=== PATIENT | female | born 1960 | race Caucasian/White ===

== ENCOUNTER 2019-01-24 13:18 | Emergency (ER) | payer OTHER ==
[~2019-01-24] VITALS: Ht 149.9 cm; Wt 61.7 kg
[~2019-01-24 13:18] MED LIST: NO MEDS
[2019-01-24] MEDS ORDERED: ONDANSETRON HCL INJ 2MG/ML 2ML 2 MG/ML VIAL IV ONE (13:29)
[2019-01-24] MEDS ORDERED: SODIUM CHLORIDE 0.9% 1000ML 1,000 ML IV STA (13:29)
[2019-01-24] MEDS ORDERED: MORPHINE SULFATE INJ 4 MG/ML INJ 1ML IV ONE (13:29)
[2019-01-24] MEDS ORDERED: DIATRIZOATE MEGL/DIATRIZOA SOD 30 ML BTL PO ONE (13:41)
[2019-01-24 14:22] LABS: BASOPHILS % 0.3 % (0.0-1.0); EOSINOPHILS # (AUTO) 0.1 (0.0-0.4); EOSINOPHILS % 0.5 % (0.0-6.0); HEMATOCRIT 44.6 % (34.2-44.1); HEMOGLOBIN 14.7 g/dL (12.0-16.0); LYMPHOCYTES # (AUTO) 1.8 (1.0-3.2); LYMPHOCYTES % 14.8 % (18.0-39.1); MEAN CORPUSCULAR HEMOGLOBIN 28.4 pg (28-32); MEAN CORPUSCULAR VOLUME 86.1 fL (81-99); MONOCYTES # (AUTO) 0.8 (0.2-0.8); MONOCYTES % 7.1 % (4.4-11.3); NEUTROPHILS # (AUTO) 9.1 (2.1-6.9); NEUTROPHILS % 76.9 % (38.7-80.0); PLATELET COUNT 244 x10e3/uL (140-360); RED BLOOD COUNT 5.18 x10e6/uL (3.6-5.1); RED CELL DISTRIBUTION WIDTH 13.2 % (11.7-14.4)
[2019-01-24 14:36] LABS: BILIRUBIN,URINE NEGATIVE (NEGATIVE); CLARITY,URINE SL CLOUDY (CLEAR); COLOR,URINE YELLOW (YELLOW); KETONES,URINE 1+ (NEGATIVE); LEUKOCYTE ESTERASE ,URINE TRACE (NEGATIVE); NITRITE,URINE NEGATIVE (NEGATIVE); PROTEIN,URINE DIPSTICK TRACE (NEGATIVE); URINE UROBILINOGEN 0.2 mg/dL (0.2 - 1)
[2019-01-24 14:42] LABS: ALANINE AMINOTRANSFERASE 49 IU/L (0-55); ALBUMIN 4.3 g/dL (3.5-5.0); ALBUMIN/GLOBULIN RATIO 1.1 (0.8-2.0); ALKALINE PHOSPHATASE 98 IU/L (40-150); ANION GAP 17.3 mmol/L (8-16); BLOOD UREA NITROGEN 20 mg/dL (7-26); BUN/CREATININE RATIO 26 (6-25); CALCIUM 9.8 mg/dL (8.4-10.2); CARBON DIOXIDE 22 mmol/L (22-29); CHLORIDE 102 mmol/L (98-107); CREATININE, SERUM 0.78 mg/dL (0.57-1.11); EST GLOMERULAR FILTRATION RATE > 60 ML/MIN (60-); GLUCOSE 147 mg/dL (74-118); MAGNESIUM 2.7 MG/DL (1.3-2.1); POTASSIUM 4.3 mmol/L (3.5-5.1); SODIUM 137 mmol/L (136-145)
[2019-01-24 14:52] LABS: BACTERIA,URINE FEW /HPF; EPITHELIAL CELLS,URINE FEW /LPF; RBC,URINE 0-5 /HPF (0-5); WBC,URINE (MAN) 0-5 /HPF (0-5)
[2019-01-24 14:53] LABS: AMORPHOUS SEDIMENT,URINE FEW (FEW); MUCUS,URINE FEW (RARE)
--- NOTE | 2019-01-24 15:44 | Diagnostic Imaging Report ---
CT of the abdomen and pelvis, with contrast, 01/24/2019. History: Left lower quadrant abdominal pain. Comparison: None available. Technique: Multidetector CT scanning of the abdomen and pelvis was performed from the level of the lung bases to the inferior pubic rami after intravenous and oral administration of contrast. Coronal and sagittal multiplanar reformations were obtained. RADIATION DOSE: Total DLP: 334 mGy*cm Dose modulation, iterative reconstruction, and/or weight based adjustment of the mA/kV was utilized to reduce the radiation dose to as low as reasonably achievable. Discussion: LUNG BASES: No visualized abnormalities. ABDOMEN: A 2.1 x 1.4 cm oval hypodense structure is present in the pancreatic tail measuring 9 Hounsfield units in density. There is no adjacent inflammation. Pancreas is otherwise unremarkable. The liver, gallbladder, biliary tree, spleen, adrenal glands, and kidneys are normal. The hepatic vein, portal vein, and splenic vein are patent. The abdominal aorta is within normal limits for size. A small hiatal hernia is present. The small bowel is unremarkable. The appendix is visualized and is normal. Multiple diverticuli are present throughout the colon, especially in the sigmoid. There is sigmoid wall thickening with adjacent mesenteric fat stranding. There is no focal fluid collection or evidence of free air. There is no evidence of adenopathy or free fluid. A small fat-containing umbilical hernia is present. PELVIS: The bladder, uterus, adnexa are unremarkable. There is no evidence of free fluid or adenopathy. 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 No other significant findings. IMPRESSION: 1. Sigmoid diverticulitis without evidence of perforation or abscess. 2. Pancreatic tail cystic lesion may represent simple cyst or IPMN. Recommend six-month follow-up. Signed by: Quinton Burger on 01/24/2019 3:40 PM
[2019-01-24] MEDS ORDERED: CIPRO500 MG PO (16:27)
[2019-01-24] MEDS ORDERED: ULTRAM50 MG PO (16:27)
[2019-01-24] MEDS ORDERED: FLAGYL500 MG PO (16:27)
[2019-01-24 16:56] VITALS: BP 113/69
[2019-01-24] MEDS ORDERED: IOPAMIDOL 370 MG/ML 200 ML INFUS..BTL INJ ONE (18:23)
[2019-01-24] MEDS ORDERED: SODIUM CHLORIDE 0.9% 50ML 50 ML ONE (18:23)
== END 2019-01-24 16:48 | disposition home or self-care (01) ==
LOC: ER 13:18
DX: R10.32 Left lower quadrant pain (principal); K57.32 Diverticulitis of large intestine without perforation or abscess without bleeding
CPT/HCPCS: 36415; 74177; 80053; 81001; 83605; 83735; 85025; 87086; 99284; J2270; J2405; J7030; Q9967

== ENCOUNTER 2019-09-25 16:13 | Emergency (ER) | payer OTHER ==
[~2019-09-25] VITALS: Ht 149.9 cm; Wt 61.7 kg
[~2019-09-25 16:13] MED LIST changes: +CIPRO500 MG PO; +FLAGYL500 MG PO; +ULTRAM50 MG PO
--- OUTSIDE RECORDS SUMMARY | 2019-09-25 16:16 | XMS REPORT ---
Author Author [facility] Address Unknown Phone Unavailable Care Team Providers Care Embedded Linux Developer Name Role Phone HEAVENLY Cardoza, Hardy REYNA PP Anabell MCLEAN Unavailable Unavailable Payers Payer Name Policy Type Policy Number Effective Date Expiration Date [facility] [id number] 2016 00:00:00 Problems Condition Name Condition Details Condition Category Status Onset Date Resolution Date Last Treatment Date Treating Clinician Comments Chest pain Chest pain Problem Active Allergies, Adverse Reactions, Alerts Allergy Name Allergy Type Status Severity Reaction(s) Onset Date Inactive Date Treating Clinician Comments No Known Allergies DA Active U 2014-09-27 00:00:00 Medications Ordered Medication Name Filled Medication Name Start Date Stop Date Current Medication? Ordering Clinician Indication Dosage Frequency Signature (SIG) Comments Components Ciprofloxacin Hcl (Cipro) 500 Mg Tablet Ciprofloxacin Hcl (Cipro) 500 Mg Tablet 2019-01-24 00:00:00 Yes Diego L Rico [employer] Super[employer] 500 Twice A Day Metronidazole (Flagyl) 500 Mg Tablet Metronidazole (Flagyl) 500 Mg Tablet 2019-01-24 00:00:00 Yes Diego L Rico [employer] Super[employer] 500 Twice A Day Tramadol Hcl (Ultram) 50 Mg Tablet Tramadol Hcl (Ultram) 50 Mg Tablet 2019-01-24 00:00:00 Yes Diego Rico [employer] Supervisor 50 Every 6 Hours as needed for Mild Pain (1-3) Or Fever>100.8 Procedures and Interventions Procedure Date / Time Performed Performing Clinician Computed tomography of abdomen and pelvis with contrast 2019-01-24 00:00:00 DIEGO RICO Encounters Start Date/Time End Date/Time Encounter Type Admission Type Attending [facility] Care Department Encounter ID 2019-01-24 13:18:00 2019-01-24 16:48:00 Departed Emergency Room 1 DAYRON MCLEAN [facility] [id number] Results Test Description Test Time Test Comments Text Results Atomic Results Result Comments BREAST,BIOPSY 2019-04-04 15:30:00 RUN DATE: 04/04/19 [employer] PAGE 1 RUN TIME: 1530 Specimen Inquiry RUN USER: INTERFACE PATIENT: BINTA RICH LOC: JAQUELIN #: [id number] AGE/SX: 58/F ROOM: RE04/02/19REG DR: Brock Kaur Jr, MD : 60 BED: DIS: STATUS: PRE REF TLOC: SPEC #: [id number] RECD: 04/03/19 STATUS: VALDEMAR ZEE #: [id number] ISAIAH: 04/02/19 DR: Brock Kaur Jr, MD ENTERED: 04/03/19 SP TYPE: BX BREAST OTHR DR: Geni Haddad MD ORDERED: GROSS COPIES TO: Brock Kaur Jr, MD [address] , [address] [place] [id number] Geni Haddad MD [address] , [address] [place] [address] PROCEDURES: GROSS (04/04/19) TISSUES: 1. BREAST CORE BIOPSY - WITHOUT CALCIFICATIONS LEFT 2. BREAST CORE BIOPSY - LEFT WITH CALCIFICATIONS CLINICAL HISTORY COLLECTION DATE: 04/02/19 LEFT BREAST CALCIFICATIONS FINAL DIAGNOSIS Left breast without calcifications, site not otherwise specified, stereotactic core biopsy: FATTY REPLACED BREAST TISSUE NO CALCIFICATIONS PRESENT NEGATIVE FOR MALIGNANCY Left breast with calcifications, site not otherwise specified, stereotactic core biopsy: CALCIFICATION IN AREA OF HYALINIZED FIBROADENOMA AREA OF HYALINIZED FIBROADENOMA WITHOUT CALCIFICATION FATTY BREAST PARENCHYMA WITH NO PATHOLOGIC ALTERATION NEGATIVE FOR MALIGNANCY RRB/roro D [id number] CONTINUED ON NEXT PAGE RUN DATE: 04/04/19 [place] [facility] PAGE 2 RUN TIME: 1530 Specimen Inquiry RUN USER: INTERFACE SPEC #: [id number] PATIENT: BINTA RICH #[id number] (Continued)--- MACROSCOPIC Specimen (1) is received in formalin, labeled "left breast without calcifications" and consists of fragments of yellow fatty tissue and a small amount of renee fibrous tissue. The specimen measures 2.5 x 2.5 x 0.25 cm in aggregate. The tissue is entirely submitted as (1). S pecimen (2) is received in formalin, labeled with the patient's name, "left breast with calcification +" and consists of multiple fragments of yellow fatty tissue with a small amount of renee fibrous tissue. The specimen measures 2.5 x 2.0 x 0.3 cm in aggregate. The tissue is submitted as (2). GROSS PERFORMED AT [facility] [address] [place] [address] (p)[phone] MICROSCOPIC All of the stains, including any controls performed, stain appropriately. MICROSCOPIC PERFORMED AT [facility] [address] [place] [address] (p)[phone] PERFORMING SITE Diagnosis performed at: [facility], SIRI [address] [place] [address] [phone] Signed SIGNATURE ON FILE Bishnu Schafer MD 04/04/[address] ABDOMEN/PELVIS W 2019-01-24 15:35:00 [place] [address] Patient Name: BINTA RICH MR #: [id number] : 1960 Age/Sex: 58/F Req #: [id number] Adm Physician: Ordered by: DIEGO RICO NP Report #: [id number] Location: ER Room/Bed: Procedure: [id number] CT/CT ABDOMEN/PELVIS W Exam Date: 01/24/19 Exam Time: 1509 REPORT STATUS: Signed CT of the abdomen and pelvis, with contrast, 01/24/2019. History: Left lower quadrant abdominal pain. Comparison: None available. Technique: Multidetector CT scanning of the abdomen and pelvis was performed from the level of the lung bases to the inferior pubic rami after intravenous and oral administration of contrast. Coronal and sagittal multiplanar reformations were obtained. RADIATION DOSE: Total DLP: 334 mGy*cm Dose modulation, iterative reconstruction, and/or weight based adjustment of the mA/kV was utilized to reduce the radiation dose to as low as reasonably achievable. Discu ssion: LUNG BASES: No visualized abnormalities. ABDOMEN: A 2.1 x 1.4 cm oval hypodense structure is present in the pancreatic tail measuring 9 Hounsfield units in density. There is no adjacent inflammation. Pancreas is otherwise unremarkable. The liver, gallbladder, biliary tree, spleen, adrenal glands, and kidneys are normal. The hepatic vein, portal vein, and splenic vein are patent. The abdominal aorta is within normal limits for size. A small hiatal hernia is present. The small bowel is unremarkable. The appendix is visualized and is normal. Multiple diverticuli are present throughout the colon, especially in the sigmoid. There is sigmoid wall thickening with adjacent mesenteric fat stranding. There is no focal fluid collection or evidence of free air. There is no evidence of adenopathy or free fluid. A small fat-containing umbilical hernia is present. PELVIS: The bladder, uterus, adnexa are unremarkable. There is no evidence of free fluid or adenopathy. 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 No other significant findings. IMPRESSION: 1. Sigmoid diverticulitis without evidence of perforation or abscess. 2. Pancreatic tail cystic lesion may represent simple cyst or IPMN. Recommend six-month follow-up. Signed by: Quinton Burger on 01/24/2019 3:40 PM Dictated By: QUINTON BURGER MD 154 Transcribed By: LASHAWN on 01/24/19 1540 COPY TO: DIEGO RICO NP Sodium Level 2019-01-24 14:54:00 Sodium Level (test xplh=1646-0) 137 136-145 Potassium Ooygb5969-90-73 14:54:00* Test Item Value Reference Range Comments Potassium Level (test hbnu=8402-1) 4.3 3.5-5.1 Chloride Ueuxz7401-69-65 14:54:00* Test Item Value Reference Range Comments Chloride Level (test ykda=8516-0) 102 98-107 Carbon Dioxide Issjy0144-59-49 14:54:00* Test Item Value Reference Range Comments Carbon Dioxide Level (test nqdp=1615-2) 22 22-29 Anion Ecd1216-47-86 14:54:00* Test Item Value Reference Range Comments Anion Gap (test fhvp=05079-9) 17.3 8-16 Blood Urea Zqoyswfj1976-21-30 14:54:00* Test Item Value Reference Range Comments Blood Urea Nitrogen (test sqfn=2560-7) 20 7-26 Uvnsrdvija1890-62-90 14:54:00* Test Item Value Reference Range Comments Creatinine (test jmwq=9059-3) 0.78 0.57-1.11 BUN/Creatinine Avbae2854-06-63 14:54:00* Test Item Value Reference Range Comments BUN/Creatinine Ratio (test jhsm=4446-3) 26 6-25 Estimat Glomerular Filtration Oteu2178-60-22 14:54:00* Test Item Value Reference Range Comments Estimat Glomerular Filtration Rate (test amkp=108232772) > 60 >60 Ranges were taken from the National Kidney Disease Education Program and the [employer] Kid[employer] Foundation literature.Reference ranges:60 or greater: Uydkwc43-91 ( for 3 consecutive months): Chronic kidney disease 15 or less: Kidney failure Glucose Gbweh4391-79-10 14:54:00* Test Item Value Reference Range Comments Glucose Level (test cgya=MWW0900) 147 74-118 Calcium Jggpa5588-02-92 14:54:00* Test Item Value Reference Range Comments Calcium Level (test qobs=37286-4) 9.8 8.4-10.2 Magnesium Ypmud6217-14-31 14:54:00* Test Item Value Reference Range Comments Magnesium Level (test rpoo=72746-4) 2.7 1.3-2.1 Total Pwiwdsccw2414-22-74 14:54:00* Test Item Value Reference Range Comments Total Bilirubin (test rbgr=0604-3) 0.9 0.2-1.2 Aspartate Amino Transf (AST/SGOT)2019-01-24 14:54:00* Test Item Value Reference Range Comments Aspartate Amino Transf (AST/SGOT) (test code=Aspartate Amino Transf (AST/SGOT)) 37 5-34 Alanine Aminotransferase (ALT/SGPT)2019-01-24 14:54:00* Test Item Value Reference Range Comments Alanine Aminotransferase (ALT/SGPT) (test burw=6211-2) 49 0-55 Total Hsimzcy3027-87-94 14:54:00* Test Item Value Reference Range Comments Total Protein (test otyk=2403-0) 8.2 6.5-8.1 Ehddvnm0531-31-55 14:54:00* Test Item Value Reference Range Comments Albumin (test ttoz=9948-6) 4.3 3.5-5.0 Ysdaopcu0705-54-28 14:54:00* Test Item Value Reference Range Comments Globulin (test xbpg=91129-8) 3.9 2.3-3.5 Albumin/Globulin Oluqf1555-78-11 14:54:00* Test Item Value Reference Range Comments Albumin/Globulin Ratio (test agjf=1556-5) 1.1 0.8-2.0 Alkaline Qddjharadmj6795-43-55 14:54:00* Test Item Value Reference Range Comments Alkaline Phosphatase (test txyw=3070-5) 98 40-150 Urine JOI0745-14-30 14:53:00* Test Item Value Reference Range Comments Urine WBC (test kqzw=3433-5) 0-5 0-5 Urine DRU0926-86-22 14:53:00* Test Item Value Reference Range Comments Urine RBC (test nxrj=60330-7) 0-5 0-5 Urine Haengtjt1714-15-04 14:53:00* Test Item Value Reference Range Comments Urine Bacteria (test dmch=33015-4) FEW NONE Urine Epithelial Qzyrr6612-48-77 14:53:00* Test Item Value Reference Range Comments Urine Epithelial Cells (test xnhu=89998-7) FEW NONE Urine Amorphous Xjvcrape7904-50-89 14:53:00* Test Item Value Reference Range Comments Urine Amorphous Sediment (test btls=3534-2) FEW FEW Urine Peqjg7353-96-05 14:53:00* Test Item Value Reference Range Comments Urine Mucus (test imrq=6300-0) FEW RARE Lactic Acid Evwws6328-82-85 14:40:00* Test Item Value Reference Range Comments Lactic Acid Level (test code=Lactic Acid Level) 16.3 4.5-19.8 Urine Abnlx9191-72-29 14:37:00* Test Item Value Reference Range Comments Urine Color (test kfjm=5621-9) YELLOW YELLOW Urine Nhiknyo8356-86-11 14:37:00* Test Item Value Reference Range Comments Urine Clarity (test wlrf=14491-7) SL CLOUDY CLEAR Urine Specific Amkelsj1671-54-94 14:37:00* Test Item Value Reference Range Comments Urine Specific Grassflat (test yowz=3586-5) >=1.030 1.010-1.025 Urine tM6251-31-47 14:37:00* Test Item Value Reference Range Comments Urine pH (test bpla=41465-1) 5.5 5-7 Urine Leukocyte Jpdzbksx5461-30-65 14:37:00* Test Item Value Reference Range Comments Urine Leukocyte Esterase (test dame=49913-1) TRACE NEGATIVE Urine Btiprlh1719-91-99 14:37:00* Test Item Value Reference Range Comments Urine Nitrite (test nuiq=31133-3) NEGATIVE NEGATIVE Urine Widyuzv9457-61-11 14:37:00* Test Item Value Reference Range Comments Urine Protein (test qokk=53057-1) TRACE NEGATIVE Urine Glucose (UA)2019-01-24 14:37:00* Test Item Value Reference Range Comments Urine Glucose (UA) (test fscn=05861-3) NEGATIVE NEGATIVE Urine Vfgrlpg4409-40-09 14:37:00* Test Item Value Reference Range Comments Urine Ketones (test iadp=60583-0) 1+ NEGATIVE Urine Jylvrwkflato2296-18-00 14:37:00* Test Item Value Reference Range Comments Urine Urobilinogen (test csuh=22817-5) 0.2 0.2-1 Urine Dvquvguyk5715-28-18 14:37:00* Test Item Value Reference Range Comments Urine Bilirubin (test juwi=8928-1) NEGATIVE NEGATIVE Urine Euirv3059-71-62 14:37:00* Test Item Value Reference Range Comments Urine Blood (test qsnr=09281-2) NEGATIVE NEGATIVE White Blood Fbgzp3450-65-70 14:24:00* Test Item Value Reference Range Comments White Blood Count (test mnsh=2431-8) 11.81 4.8-10.8 Red Blood Znpke0507-61-52 14:24:00* Test Item Value Reference Range Comments Red Blood Count (test hglw=490-8) 5.18 3.6-5.1 Qsxccdogcu0034-01-54 14:24:00* Test Item Value Reference Range Comments Hemoglobin (test kjzb=26198-5) 14.7 12.0-16.0 Fjbdkebovp2725-47-16 14:24:00* Test Item Value Reference Range Comments Hematocrit (test ctdz=4693-3) 44.6 34.2-44.1 Mean Corpuscular Xqtlmq4355-89-95 14:24:00* Test Item Value Reference Range Comments Mean Corpuscular Volume (test cood=139-3) 86.1 81-99 Mean Corpuscular Dlluiqwzlm5891-89-13 14:24:00* Test Item Value Reference Range Comments Mean Corpuscular Hemoglobin (test mlgl=240-1) 28.4 28-32 Mean Corpuscular Hemoglobin Rrkoytk1475-72-47 14:24:00* Test Item Value Reference Range Comments Mean Corpuscular Hemoglobin Concent (test qrur=646-2) 33.0 31-35 Red Cell Distribution Ibqwv4365-76-72 14:24:00* Test Item Value Reference Range Comments Red Cell Distribution Width (test hhco=66497-5) 13.2 11.7-14.4 Platelet Joasx8253-98-79 14:24:00* Test Item Value Reference Range Comments Platelet Count (test yxbb=281-3) 244 140-360 Neutrophils (%) (Auto)2019-01-24 14:24:00* Test Item Value Reference Range Comments Neutrophils (%) (Auto) (test nebf=27062-0) 76.9 38.7-80.0 Lymphocytes (%) (Auto)2019-01-24 14:24:00* Test Item Value Reference Range Comments Lymphocytes (%) (Auto) (test cdtg=248-8) 14.8 18.0-39.1 Monocytes (%) (Auto)2019-01-24 14:24:00* Test Item Value Reference Range Comments Monocytes (%) (Auto) (test ekti=1757-8) 7.1 4.4-11.3 Eosinophils (%) (Auto)2019-01-24 14:24:00* Test Item Value Reference Range Comments Eosinophils (%) (Auto) (test nlfi=543-3) 0.5 0.0-6.0 Basophils (%) (Auto)2019-01-24 14:24:00* Test Item Value Reference Range Comments Basophils (%) (Auto) (test uagq=754-4) 0.3 0.0-1.0 IM GRANULOCYTES %2019-01-24 14:24:00* Test Item Value Reference Range Comments IM GRANULOCYTES % (test code=IM GRANULOCYTES %) 0.4 0.0-1.0 Neutrophils # (Auto)2019-01-24 14:24:00* Test Item Value Reference Range Comments Neutrophils # (Auto) (test lwdz=216-7) 9.1 2.1-6.9 Lymphocytes # (Auto)2019-01-24 14:24:00* Test Item Value Reference Range Comments Lymphocytes # (Auto) (test bhkc=50362-0) 1.8 1.0-3.2 Monocytes # (Auto)2019-01-24 14:24:00* Test Item Value Reference Range Comments Monocytes # (Auto) (test wyna=869-4) 0.8 0.2-0.8 Eosinophils # (Auto)2019-01-24 14:24:00* Test Item Value Reference Range Comments Eosinophils # (Auto) (test mkzf=284-8) 0.1 0.0-0.4 Basophils # (Auto)2019-01-24 14:24:00* Test Item Value Reference Range Comments Basophils # (Auto) (test svto=338-0) 0.0 0.0-0.1 Absolute Immature Granulocyte (womg9543-86-89 14:24:00* Test Item Value Reference Range Comments Absolute Immature Granulocyte (auto (test code=Absolute Immature Granulocyte (auto) 0.05 0-0.1 - CT ABD PELVIS W/WKLZ5421-02-18 11:19:00 Name: BINTA RICH [facility] : 1960 Age/S: 58 / F [address] Unit #: [id number] Loc: [place] [address] Phys: Shahzad Fulton MD Acct: [id number] Dis Date: Status: REG ER PHONE #: [phone] Exam Date: 12/21/2018 1036 FAX #: [phone] Reason: R sided abd pain eval for appy EXAMS: CPT CODE: [id number] CT ABD PELVIS W/CONT 19766 REASON FOR EXAM: R sided abd pain eval for appy EXAM ORDER DATE: 12/21/2018 10:19 AM Ordering MBritt: Shahzad Fulton MD PROCEDURE: - CT ABD PELVIS W/CONT contrast-enhanced axial CT images were acquired through the abdomen/pelvis at 5 mm intervals. Sagittal and coronal reformatted images were generated. Automated exposure control was utilized for this reduction. Phases of contrast: venous and delayed COMPARISON: Abdominal ultrasound 1 hour earlier FINDINGS: Visualized thorax: Normal Hepatobiliary system: Decreased attenuation of the liver compatible with hepatic steatosis. No hepatic masses are seen. No intra or extra hepatic biliary ductal dilatation. Gallbladder is within normal limits. Pancreas: 2.2 x 1.6 cm cystic lesion in the tail of the pancreas. No definite internal septations are seen. Spleen: Normal Adrenal glands: Normal Genitourinary system: Calcifications within the uterus may represent fibroids. Otherwise normal. Gastrointestinal tract and appendix: There is diverticular disease seen throughout the colon that is most pronounced in the sigmoid colon. There is mural thickening and adjacent fat stranding involving a 7 cm segment of the proximal ascending colon. Appendix is within normal limits. Cecum was within normal limits. The small bowel is grossly unremarkable. Abdominal vascular structures: Atherosclerotic disease is scattered throughout the abdominal aorta and iliac arteries. Peritoneum and retroperitoneum: No free air. As mentioned earlier PAGE 1 Signed Report (CONTINUED) Name: BINTA RICH [facility] : 1960 Age/S: 58 / F [address] Unit #: [id number] Loc: [facility] [place] [address] Phys: Shahzad Fulton MD Acct: [id number] Dis Date: Status: REG ER PHONE #: [phone] Exam Date: 12/21/2018 1036 FAX #: [phone] Reason: R sided abd pain eval for appy EXAMS: CPT CODE: [id number] CT ABD PELVIS W/CONT 46791 <Continued> there is stranding of the fat adjacent to the proximal ascending colon. No discrete fluid collection is seen however. There are a few subcentimeter pericolonic lymph nodes in the right hemiabdomen which are nonspecific and may be reactive. Musculoskeletal structures and abdominal wall: Mild degenerative changes are present in the lumbar spine. Small fat-containing umbilical hernia is present. IMPRESSION: Inflammatory changes involving a 7 cm segment of the ascending colon. Given the presence of diffuse diverticular disease throughout the colon, this finding likely represents diverticulitis. No free air or rim-enhancing fluid collection is seen. Cystic lesion in the tail of the pancreas may represent a mucinous cystadenoma of the pancreas versus a side branch intraductal papillary mucinous neoplasm. This can be further evaluated with a nonemergent MRCP to assess the relationship of this lesion to the pancreatic duct. Hepatic steatosis. at 1119 Reported and signed by: Trey Frankel MD CC: Brock Kaur M.D.; Vipul Fulton MD Technologist:DORA CULLEN, RT(R),CT CTDI: DLP: Trnscb Date/Time: 12/21/2018 (1119) t.SDR.RR31 Orig Print D/T: S: 12/21/2018 (1122) PAGE 2 Signed Report - US ABDOMEN STP6903-87-60 10:10:00 Name: IBNTA RICH [facility] : 1960 Age/S: 58 / F [address] Unit #: [id number] Loc: [place] [address] Phys: Bridget Fulton MD Acct: [id number] Di s Date: Status: REG ER PHONE #: Exam Date: 12/21/2018 0943 FAX #: [phone] Reason: RUQ pain EXAMS: CPT CODE: [id number] US ABDOMEN LTD 84032 REASON FOR EXAM: RUQ pain EXAM ORDER DATE: 12/21/2018 8:29 AM Ladonna jimenez M.D.: Shahzad Fulton MD PROCEDURE: - US ABDOMEN LTD Technique: Grayscale images of the Pancreas, liver, right kidney, common bile duct, and gallbladder. Grayscale and color Doppler images of the aorta, IVC, and portal vein. Comparison: None FI NDINGS: Aorta and IVC:Patent and grossly normal in caliber. Liver: Size: 14.6 cm craiocaudally Parenchyma and contour: Smooth contour. Diffusely increased echogenicity. Cysts and/or mass es: None. Intrahepatic bile ducts: No intrahepatic biliary ductal dilation Common bile duct: 0.3 cm in diameter. No echogenic filli ng defects in visualized duct. Gallbladder: Stones/sl udge: No intraluminal stones or sludge. Wall: 2 mm in thickness. No disco ntinuity. No polyps. No pericholecystic fluid. No hyperemia. Sono graphic Pino's sign: Negative Portal vein: Portal vein caliber i s within normal limits. Portal vein is patent with hepatopetal flow. Pancreas: Incompletely visualized. However the visualized portions are grossly within normal limits. Right kidney: size: 9.4 x 4.5 x 3.7 cm. stones: none PAGE 1 Signed Re port (CONTINUED) Name: LAYLABINTA HAMILTON [facility] : 1960 Age/S: 58 / F [address] [facility] Unit #: [id number] Loc: [place] [address] Phys: Shahzad Fulton MD Acct: [id number] Dis Date: Status: REG ER PHONE #: [phone] Exam Date: 12/21/2018 0943 FAX #: [phone] Reason: RUQ pain EXAMS: CPT CODE: [id number] ABDOMEN LTD 92415 <Continued> cysts/masses: none hydronephrosis: none There is no evidence of ascites. IMPRESSION: Hepatic steatosis. at 1010 Reported and signed by: Trey Frankel MD CC: Brock Kaur M.D.; Shahzad Fulton MD Technologist: Nilam Vega Trncob Date/Time: 12/21/2018 (1010) t.SDR.RR31 Orig Print D/T: S: 12/21/2018 (1013) Probe: PAGE 2 Signed Report - XR CHEST 1 W2983-68-72 09:10:00 Name: BINTA RICH [facility] : 1960 Age/S:58 /F [address] Unit#:[id number] Loc: [place], [place] [address] Phys: Shahzad Fulton MD Dis Date: PHONE #: [phone] Status: REG ER FAX #: [phone] Exam Date: 12/21/2018 Reason: n/v EXAMS: CPT CODE: [id number] XR CHEST 1 V 08500 REASON FOR EXAM: n/v Exam Order Date: 12/21/2018 8:02 AM Ordering Nani: Shahzad Fulton MD PROCEDURE: - XR CHEST 1 V COMPARISON: 2 view chest x-ray October 10, 2013. FINDINGS: The lungs are clear. There is no pleural effusion or pneumothorax. Pulmonary vascularity is within normal limits. Cardiomediastinal silhouette is normal in size for technique. The mediastinal contours are within normal limits. Musculoskeletal structures are within normal limits. The visualized upper abdomen is within normal limits. IMPRESSION: No acute cardiopulmonary process. at 0910 Reported and signed by: Trey Frankel MD CC: Brock Kaur M.D.; Shahzad Fulton MD Technologist: DORA CULLEN, RT(R),CT Trnscrpt Data: 12/21/2018 (0910) t.SDR.RR31 Orig Print D/T: S: 12/21/2018 (0913) PAGE 1 Signed Report COMPREHENSIVE METABOLIC FHIQD4404-57-76 08:55:00* Test Item Value Reference Range Comments SODIUM (test code=NA) 138 mmol/L 135-148 POTASSIUM (test code=K) 3.6 mmol/L 3.5-5.1 CHLORIDE (test code=CL) 102 mmol/L 101-109 CARBON DIOXIDE (test code=CO2) 27.1 mmol/L 21-32 ANION GAP (test code=GAP) 13 mmol/L 10-20 GLUCOSE (test code=GLU) 130 mg/dL 74-106 BLOOD UREA NITROGEN (test code=BUN) 18 mg/dL 3-21 CREATININE (test code=CREAT) 0.83 mg/dL 0.55-1.3 BUN/CREATININE RATIO (test code=BUN/CREA) 21.7 10-20 TOTAL PROTEIN (test code=PROT) 7.5 g/dL 6.5-8.4 ALBUMIN (test code=ALB) 3.3 g/dL 3.4-4.8 GLOBULIN (test code=GLOB) 4.2 G/DL 1-10 ALBUMIN/GLOBULIN RATIO (test code=A/G) 0.8 RATIO 0.75-1.50 CALCIUM (test code=CA) 9.1 mg/dL 8.4-10.2 BILIRUBIN TOTAL (test code=BILT) 0.70 mg/dL 0.0-1.0 SGOT/AST (test code=AST) 18 U/L 6-32 SGPT/ALT (test code=ALT) 41 U/L 12-78 Note: Change in REFERENCE RANGE due to new reagent method. ALKALINE PHOSPHATASE TOTAL (test code=ALKP) 106 U/L 38-126 AWRAMD0016-75-11 08:55:00* Test Item Value Reference Range Comments LIPASE (test code=LIP) 81 U/L 128-270 RKBEGEMNN9209-58-56 08:55:00* Test Item Value Reference Range Comments MAGNESIUM (test code=MAG) 1.9 mg/dL 1.6-2.3 NGUJOTBV-X3622-03-13 08:55:00* Test Item Value Reference Range Comments TROPONIN-I (test code=TROPI) <0.015 ng/mL 0.00-0.056 COMPREHENSIVE METABOLIC GVZZK6795-26-77 08:53:00* Test Item Value Reference Range Comments SODIUM (test code=NA) 138 mmol/L 135-148 POTASSIUM (test code=K) 3.6 mmol/L 3.5-5.1 CHLORIDE (test code=CL) 102 mmol/L 101-109 CARBON DIOXIDE (test code=CO2) 27.1 mmol/L 21-32 ANION GAP (test code=GAP) 13 mmol/L 10-20 GLUCOSE (test code=GLU) 130 mg/dL 74-106 BLOOD UREA NITROGEN (test code=BUN) 18 mg/dL 3-21 CREATININE (test code=CREAT) 0.83 mg/dL 0.55-1.3 BUN/CREATININE RATIO (test code=BUN/CREA) 21.7 10-20 TOTAL PROTEIN (test code=PROT) gram/dL 6.4-8.2 ALBUMIN (test code=ALB) g/dL 3.4-5.0 GLOBULIN (test code=GLOB) g/dL 2.7-4.2 ALBUMIN/GLOBULIN RATIO (test code=A/G) 0.75-1.50 CALCIUM (test code=CA) 9.1 mg/dL 8.4-10.2 BILIRUBIN TOTAL (test code=BILT) mg/dL 0.2-1.2 SGOT/AST (test code=AST) IUnit/L 15-37 SGPT/ALT (test code=ALT) U/L 10-69 ALKALINE PHOSPHATASE TOTAL (test code=ALKP) IUnit/L 45-117 [id number] 08:53:00* Test Item Value Reference Range Comments LIPASE (test code=LIP) Unit/L 144-286 [id number] 08:53:00* Test Item Value Reference Range Comments MAGNESIUM (test code=MAG) mg/dL 1.8-2.4 [id number] 08:53:00* Test Item Value Reference Range Comments TROPONIN-I (test code=TROPI) ng/mL 0-0.045 URINALYSIS [id number] 08:44:00* Test Item Value Reference Range Comments UA COLOR (test code=COLU) YELLOW YELLOW UA APPEARANCE (test code=APPU) CLEAR CLEAR UA GLUCOSE DIPSTICK (test code=DGLUU) norm mg/dL NEGATIVE UA BILIRUBIN DIPSTICK (test code=BILU) NEGATIVE mg/dL NEGATIVE UA KETONE DIPSTICK (test code=KETU) neg mg/dL NEGATIVE UA SPECIFIC GRAVITY (test code=SGU) 1.010 1.001-1.035 UA BLOOD DIPSTICK (test code=PHI) 10 (Trace) Shamir/uL NEGATIVE UA PH DIPSTICK (test code=DAE) 7.0 5.0-8.0 UA PROTEIN DIPSTICK (test code=PROU) 15 (TRACE) mg/dL Neg-15 UA UROBILINIOGEN DIPSTICK (test code=URO) 1 mg/dL 0.0-0.2 UA NITRITE DIPSTICK (test code=CHRIS) NEGATIVE NEGATIVE UA LEUKOCYTE ESTERASE DIPSTICK (test code=LEUU) 25 María Elena/uL (Trace) uL NEGATIVE UA WBC (test code=WBCU) 6-10 per HPF 0-5 UA RBC (test code=RBCU) 5-10 per HPF 0-5 UA EPITHELIAL CELLS (test code=EPIU) Few (2-5/hpf) per HPF Few UA BACTERIA (test code=BACU) FEW per HPF NONE Urine Source? Clean CatchURINALYSIS [id number] 08:43:00* Test Item Value Reference Range Comments UA COLOR (test code=COLU) YELLOW YELLOW UA APPEARANCE (test code=APPU) CLEAR CLEAR UA GLUCOSE DIPSTICK (test code=DGLUU) norm mg/dL NEGATIVE UA BILIRUBIN DIPSTICK (test code=BILU) NEGATIVE mg/dL NEGATIVE UA KETONE DIPSTICK (test code=KETU) neg mg/dL NEGATIVE UA SPECIFIC GRAVITY (test code=SGU) 1.010 1.001-1.035 UA BLOOD DIPSTICK (test code=PHI) 10 (Trace) Shamir/uL NEGATIVE UA PH DIPSTICK (test code=DAE) 7.0 5.0-8.0 UA PROTEIN DIPSTICK (test code=PROU) 15 (TRACE) mg/dL Neg-15 UA UROBILINIOGEN DIPSTICK (test code=URO) 1 mg/dL 0.0-0.2 UA NITRITE DIPSTICK (test code=CHRIS) NEGATIVE NEGATIVE UA LEUKOCYTE ESTERASE DIPSTICK (test code=LEUU) 25 María Elena/uL (Trace) uL NEGATIVE UA WBC (test code=WBCU) per HPF 0-5 UA RBC (test code=RBCU) per HPF 0-5 UA EPITHELIAL CELLS (test code=EPIU) per HPF Few UA BACTERIA (test code=BACU) per HPF NONE Urine Source? Clean CatchCBC W/AUTO [id number] 08:42:00* Test Item Value Reference Range Comments WHITE BLOOD CELL (test code=WBC) 10.9 K/mm3 4.5-12.5 RED BLOOD CELL (test code=RBC) 4.61 mill/mm3 3.7-5.2 HEMOGLOBIN (test code=HGB) 13.4 gram/dL 11.5-15.5 HEMATOCRIT (test code=HCT) 40.3 % 36.0-46.0 MEAN CELL VOLUME (test code=MCV) 87.4 fL 80-98 MEAN CELL HGB (test code=MCH) 29.1 picogram 27.0-33.0 MEAN CELL HGB CONCETRATION (test code=MCHC) 33.3 gram/dL 33.0-36.0 RED CELL DISTRIBUTION WIDTH (test code=RDW) 12.8 % 11.6-16.2 RED CELL DISTRIBUTION WIDTH SD (test code=RDW-SD) 41.9 fL 37.0-51.0 PLATELET COUNT (test code=PLT) 226 K/mm3 150-450 MEAN PLATELET VOLUME (test code=MPV) 10.3 fL 6.7-11.0 NEUTROPHIL % (test code=NT%) 70.8 % 39.0-69.0 LYMPHOCYTE % (test code=LY%) 17.9 % 25.0-55.0 MONOCYTE % (test code=MO%) 10.1 % 0.0-10.0 EOSINOPHIL % (test code=EO%) 0.7 % 0.0-5.0 BASOPHIL % (test code=BA%) 0.3 % 0.0-1.0 NEUTROPHIL # (test code=NT#) 7.69 K/mm3 1.8-7.7 LYMPHOCYTE # (test code=LY#) 1.95 K/mm3 1.0-5.0 MONOCYTE # (test code=MO#) 1.10 K/mm3 0-0.8 EOSINOPHIL # (test code=EO#) 0.08 K/mm3 0.0-0.5 BASOPHIL # (test code=BA#) 0.03 K/mm3 0.0-0.2 MANUAL DIFF REQUIRED (test code=MDIFF) NO
[2019-09-25] MEDS ORDERED: ASPIRIN 81 MG CHEW TAB PO ONE (16:30)
[2019-09-25 16:53] LABS: BASOPHILS % 0.7 % (0.0-1.0); EOSINOPHILS # (AUTO) 0.1 (0.0-0.4); EOSINOPHILS % 0.9 % (0.0-6.0); HEMATOCRIT 45.9 % (34.2-44.1); HEMOGLOBIN 14.8 g/dL (12.0-16.0); LYMPHOCYTES # (AUTO) 1.8 (1.0-3.2); LYMPHOCYTES % 32.3 % (18.0-39.1); MEAN CORPUSCULAR HEMOGLOBIN 28.1 pg (28-32); MEAN CORPUSCULAR HGB CONC 32.2 g/dL (31-35); MEAN CORPUSCULAR VOLUME 87.3 fL (81-99); MONOCYTES # (AUTO) 0.5 (0.2-0.8); MONOCYTES % 8.3 % (4.4-11.3); NEUTROPHILS # (AUTO) 3.3 (2.1-6.9); NEUTROPHILS % 57.4 % (38.7-80.0); PLATELET COUNT 268 x10e3/uL (140-360); RED BLOOD COUNT 5.26 x10e6/uL (3.6-5.1); RED CELL DISTRIBUTION WIDTH 12.9 % (11.7-14.4)
[2019-09-25 17:01] LABS: INR 0.86; PROTHROMBIN TIME 12.2 seconds (11.9-14.5)
[2019-09-25 17:02] LABS: PARTIAL THROMBOPLASTIN TIME 28.4 seconds (23.8-35.5)
[2019-09-25 17:11] LABS: ALANINE AMINOTRANSFERASE 40 IU/L (0-55); ALBUMIN 4.2 g/dL (3.5-5.0); ALBUMIN/GLOBULIN RATIO 1.2 (0.8-2.0); ALKALINE PHOSPHATASE 111 IU/L (40-150); ANION GAP 10.9 mmol/L (8-16); BLOOD UREA NITROGEN 19 mg/dL (7-26); BUN/CREATININE RATIO 26 (6-25); CALCIUM 10.2 mg/dL (8.4-10.2); CARBON DIOXIDE 28 mmol/L (22-29); CHLORIDE 103 mmol/L (98-107); CREATINE KINASE 94 IU/L (29-168); CREATININE, SERUM 0.73 mg/dL (0.57-1.11); EST GLOMERULAR FILTRATION RATE > 60 ML/MIN (60-); GLUCOSE 108 mg/dL (74-118); POTASSIUM 3.9 mmol/L (3.5-5.1); SODIUM 138 mmol/L (136-145)
[2019-09-25 17:30] LABS: THYROID STIMULATING HORMONE 1.995 uIU/mL (0.350-4.940)
--- NOTE | 2019-09-25 17:45 | Diagnostic Imaging Report ---
EXAMINATION: CHEST SINGLE (NOT PORTABLE) INDICATION: Chest pain ^ERMD ORDER ^[id number] ^1735 ^Y COMPARISON: None FINDINGS: TUBES and LINES: None. LUNGS: Lungs are well inflated. Lungs are clear. There is no evidence of pneumonia or pulmonary edema. PLEURA: No pleural effusion or pneumothorax. HEART AND MEDIASTINUM: The cardiomediastinal silhouette is unremarkable. BONES AND SOFT TISSUES: No acute osseous lesion. Soft tissues are unremarkable. UPPER ABDOMEN: No free air under the diaphragm. IMPRESSION: No acute thoracic abnormality. Signed by: Dr. Sonny Mazariegos M.D. on 09/25/2019 5:41 PM
[2019-09-25 18:24] VITALS: BP 148/81
== END 2019-09-25 18:25 | disposition home or self-care (01) ==
LOC: ER 16:13
DX: R07.89 Other chest pain (principal); Z87.19 Personal history of other diseases of the digestive system
CPT/HCPCS: 36415; 71045; 80053; 82550; 82553; 83880; 84443; 84484; 85025; 85610; 85730; 93005; 99284

== ENCOUNTER 2019-11-16 13:56 | Emergency (ER) | payer OTHER ==
[~2019-11-16] VITALS: Ht 149.9 cm; Wt 63.5 kg
--- OUTSIDE RECORDS SUMMARY | 2019-11-16 14:00 | XMS REPORT | Continuity of Care Document ---
Author Author [facility] t Organization [facility] [place], [place] Address [address] [place] [address] Phone Unavailable Care Team Providers Care Field Hauler Name Role Phone Hardy KAUR M.D. OSIEL GONSALVES Attphys Unavailable Anabell MCLEAN Attphys Unavailable Payers Payer Name Policy Type Policy Number Effective Date Expiration Date S tone [facility] [id number] 2016 00:00:00 [facility] Problems Condition Name Condition Details Condition Category Status Onset Date Resolution Date Last Treatment Date Treating Clinician Comments Source Chest pain Chest pain Problem Active C [facility] Allergies, Adverse Reactions, Alerts Allergy Name Allergy Type Status Severity Reaction(s) Onset Date Inacti ve Date Treating Clinician Comments Source No Known Allergies DA Active U 2014-09-27 00:00:00 [facility] Medications Ordered Medication Name Filled Medication Name Start Date Stop Da te Current Medication? 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 [facility] Tramadol Hcl (Ultram) 50 Mg Tablet Tramadol Hcl (Ultram) 50 Mg Tablet 2019-01-24 00:00:00 Yes Diego Rico Recreation Teacher 50 Every 6 Hours as needed for Mild Pain (1-3) Or Fever>100.8 [facility] Procedures Procedure Date / Time Performed Performing Clinician [facility] e X-ray of chest, single view 2019-09-25 00:00:00 QUINTON MACEDO [facility] Computed tomography of abdomen and pelvis with contrast 2018 00:00:00 DIEGO RICO [facility] Encounters Start Date/Time End Date/Time Encounter Type Admission Type [facility] Care Department Encounter ID Source 2019-09-25 16:13:00 2019-09-25 18:25:00 Departed Emergency Room 1 OSIEL GONSALVES [facility] [id number] [facility] 2019-01-24 13:18:00 2019-01-24 16:48:00 Departed Emergency Room 1 DAYRON MCLEAN [facility] [id number] [facility] Results Test Description Test Time Test Comments Results Result Comments Source CHEST SINGLE (NOT PORTABLE) 2019-09-25 17:41:00 [place] [address] Patient Name: BINTA RICH MR #: [id number] : 1960 Age/Sex: 59/F Req #: [id number] Adm Physician: Ordered by: QUINTON MACEDO CHILDREN'S PROGRAM COORDINATOR Report #: [id number] Location: ER Room/Bed: Procedure: [id number] DX/CHEST SINGLE (NOT PORTABLE) Exam Date: 09/25/19 Exam Time: 1735 REPORT STATUS: Signed EXAMINATION: CHEST SINGLE (NOT PORTABLE) INDICATION: Chest pain ERMD ORDER [id number] Y COMPARISON: None FINDINGS: TUBES and LINES: None. LUNGS: Lungs are well inflated. Lungs are clear. There is no evidence of pneumonia or pulmonary edema. PLEURA: No pleural effusion or pneumothorax. HEART AND MEDIASTINUM: The cardiomediastinal silhouette is unremarkable. BONES AND SOFT TISSUES: No acute osseous lesion. Soft tissues are unremarkable. UPPER ABDOMEN: No free air under the diaphragm. IMPRESSION: No acute thoracic abnormality. Signed by: Dr. Carmelina Mazareigos M.D. on 09/25/2019 5:41 PM Dictated By: CARMELINA MAZARIEGOS MD, MD 40 Transcribed By: LASHAWN on 09/25/191740 COPY TO: QUINTON MACEDO NP Creatine Kinase MB 2019-09-25 17:32:00 Test Item Creatine Kinase MB (test code = 51746-1) 1.50 0-5.0 [facility] [id number] 17:32:00* Test Item Value Reference Range Interpretation Comments Troponin I (test code = 10462-4) < 0.001 0-0.300 [facility] CenterThyroid Stimulating Hormone (TSH) 2019-09-25 17:32:00* Test Item Value Reference Range Interpretation Comments Thyroid Stimulating Hormone (TSH) (test code = 68401-3) 1.995 0.350-4.940 [facility] CenterB-Type Natriuretic Lohxjtd8864-75-71 17:24:00* Test Item Value Reference Range Interpretation Comments B-Type Natriuretic Peptide (test code = 44131-5) < 10.0 0-100 [facility] Zhxrz5572-05-72 17:14:00* Test Item Value Reference Range Interpretation Comments Sodium Level (test code = 2951-2) 138 136-145 [facility] CenterPotassium Nbevx6772-08-09 17:14:00* Test Item Value Reference Range Interpretation Comments Potassium Level (test code = 2823-3) 3.9 3.5-5.1 [facility] CenterChloride Fceis9365-26-06 17:14:00* Test Item Value Reference Range Interpretation Comments Chloride Level (test code = 2075-0) 103 98-107 [facility] CenterCarbon Dioxide Asndp8582-50-59 17:14:00* Test Item Value Reference Range Interpretation Comments Carbon Dioxide Level (test code = 2028-9) 28 22-29 [facility] CenterAnion Aex7820-15-76 17:14:00* Test Item Value Reference Range Interpretation Comments Anion Gap (test code = 54044-8) 10.9 8-16 [facility] CenterBlood Urea Ockcfcsw5835-56-18 17:14:00* Test Item Value Reference Range Interpretation Comments Blood Urea Nitrogen (test code = 3094-0) 19 7-26 [facility] CenterCreatinine2020-04-16 17:14:00* Test Item Value Reference Range Interpretation Comments Creatinine (test code = 2160-0) 0.73 0.57-1.11 [facility] CenterBUN/Creatinine Wnydg3847-86-51 17:14:00* Test Item Value Reference Range Interpretation Comments BUN/Creatinine Ratio (test code = 3097-3) 26 6-25 H [facility] CenterEstimat Glomerular Filtration Rate 2019-09-25 17:14:00* Test Item Value Reference Range Interpretation Comments Estimat Glomerular Filtration Rate (test code = 311982949) > 60 >60 Ranges were taken from the National Kidney Disease Education Program and the [facility] literature.Reference ranges:60 or greater: Epxlsi45-44 ( for 3 consecutive months): Chronic kidney disease 15 or less: Kidney failureUniversity Medical CenterGlucose Hlawq4204-37-01 17:14:00* Test Item Value Reference Range Interpretation Comments Glucose Level (test code = XYW0757) 108 74-118 [facility] CenterCalcium Vehnk0046-06-27 17:14:00* Test Item Value Reference Range Interpretation Comments Calcium Level (test code = 16418-4) 10.2 8.4-10.2 [facility] CenterTotal Ielkftfkz1201-04-09 17:14:00* Test Item Value Reference Range Interpretation Comments Total Bilirubin (test code = 1975-2) 0.4 0.2-1.2 [facility] CenterAspartate Amino Transf (AST/SGOT) 2019-09-25 17:14:00* Test Item Value Reference Range Interpretation Comments Aspartate Amino Transf (AST/SGOT) (test code = Aspartate Amino Transf (AST/SGOT)) 26 5-34 [facility] CenterAlanine Aminotransferase (ALT/SGPT) 2019-09-25 17:14:00* Test Item Value Reference Range Interpretation Comments Alanine Aminotransferase (ALT/SGPT) (test code = 1742-6) 40 0-55 [facility] CenterTotal Hxlxacm6597-50-95 17:14:00* Test Item Value Reference Range Interpretation Comments Total Protein (test code = 2885-2) 7.7 6.5-8.1 [facility] CenterAlbumin2020-04-16 17:14:00* Test Item Value Reference Range Interpretation Comments Albumin (test code = 1751-7) 4.2 3.5-5.0 [facility] CenterGlobulin2020-04-16 17:14:00* Test Item Value Reference Range Interpretation Comments Globulin (test code = 10527-2) 3.5 2.3-3.5 [facility] CenterAlbumin/Globulin Twbai7970-19-90 17:14:00 * Test Item Value Reference Range Interpretation Comments Albumin/Globulin Ratio (test code = 1759-0) 1.2 0.8-2.0 [facility] CenterAlkaline Yvvywvzyeql1785-96-28 17:14:00* Test Item Value Reference Range Interpretation Comments Alkaline Phosphatase (test code = 6768-6) 111 40-150 [facility] CenterCreatine Feaxvb0963-84-70 17:14:00* Test Item Value Reference Range Interpretation Comments Creatine Kinase (test code = 2157-6) 94 29-168 [facility] CenterProthrombin Wsdk3724-15-95 17:03:00* Test Item Value Reference Range Interpretation Comments Prothrombin Time (test code = 5902-2) 12.2 11.9-14.5 [facility] CenterProthromb Time International Ratio 2019-09-25 17:03:00* Test Item Value Reference Range Interpretation Comments Prothromb Time International Ratio (test code = 6301-6) 0.86 Oral Anticoagulant Therapy INR Values:1. Low Intensity Therapy 1.5 - 2.02 . Moderate Intensity Therapy 2.0 - 3.03. High Intensity Therapy(1) 2.5 - 3. 54. High Intensity Therapy(2) 3.0 - 4.05. Panic Value INR > 5.0 [facility] CenterActivated Partial Thromboplast Time 2019-09-25 17:03:00* Test Item Value Reference Range Interpretation Comments Activated Partial Thromboplast Time (test code = 05453-6) 28.4 23.8-35.5 [facility] CenterWhite Blood Uomxf6742-42-18 16:57:00* Test Item Value Reference Range Interpretation Comments White Blood Count (test code = 6690-2) 5.69 4.8-10.8 [facility] CenterRed Blood Chgcc9523-87-87 16:57:00* Test Item Value Reference Range Interpretation Comments Red Blood Count (test code = 789-8) 5.26 3.6-5.1 H [facility] CenterHemoglobin2020-04-16 16:57:00* Test Item Value Reference Range Interpretation Comments Hemoglobin (test code = 06156-3) 14.8 12.0-16.0 [facility] CenterHematocrit2020-04-16 16:57:00* Test Item Value Reference Range Interpretation Comments Hematocrit (test code = 4544-3) 45.9 34.2-44.1 H [facility] CenterMean Corpuscular Cnzzfe3742-01-09 16:57:00* Test Item Value Reference Range Interpretation Comments Mean Corpuscular Volume (test code = 787-2) 87.3 81-99 [facility] CenterMean Corpuscular Mjqrmjkdnb2237-23-77 16:57:00* Test Item Value Reference Range Interpretation Comments Mean Corpuscular Hemoglobin (test code = 785-6) 28.1 28-32 [facility] CenterMean Corpuscular Hemoglobin Concent 2019-09-25 16:57:00* Test Item Value Reference Range Interpretation Comments Mean Corpuscular Hemoglobin Concent (test code = 786-4) 32.2 31-35 [facility] CenterRed Cell Distribution Wthiw7510-03-18 16:57:00* Test Item Value Reference Range Interpretation Comments Red Cell Distribution Width (test code = 91266-2) 12.9 11.7 -14.4 [facility] CenterPlatelet Wqkfu5263-19-29 16:57:00* Test Item Value Reference Range Interpretation Comments Platelet Count (test code = 777-3) 268 140-360 [facility] CenterNeutrophils (%) (Auto)2019-09-25 16:57:00 * Test Item Value Reference Range Interpretation Comments Neutrophils (%) (Auto) (test code = 26591-3) 57.4 38.7-80.0 [facility] CenterLymphocytes (%) (Auto)2019-09-25 16:57:00 * Test Item Value Reference Range Interpretation Comments Lymphocytes (%) (Auto) (test code = 736-9) 32.3 18.0-39.1 [facility] CenterMonocytes (%) (Auto)2019-09-25 16:57:00* Test Item Value Reference Range Interpretation Comments Monocytes (%) (Auto) (test code = 5905-5) 8.3 4.4-11.3 [facility] CenterEosinophils (%) (Auto)2019-09-25 16:57:00 * Test Item Value Reference Range Interpretation Comments Eosinophils (%) (Auto) (test code = 713-8) 0.9 0.0-6.0 [facility] CenterBasophils (%) (Auto)2019-09-25 16:57:00* Test Item Value Reference Range Interpretation Comments Basophils (%) (Auto) (test code = 706-2) 0.7 0.0-1.0 [facility] CenterIM GRANULOCYTES %2019-09-25 16:57:00* Test Item Value Reference Range Interpretation Comments IM GRANULOCYTES % (test code = IM GRANULOCYTES %) 0.4 0.0- 1.0 [facility] CenterNeutrophils # (Auto)2019-09-25 16:57:00* Test Item Value Reference Range Interpretation Comments Neutrophils # (Auto) (test code = 751-8) 3.3 2.1-6.9 [facility] CenterLymphocytes # (Auto)2019-09-25 16:57:00* Test Item Value Reference Range Interpretation Comments Lymphocytes # (Auto) (test code = 74007-6) 1.8 1.0-3.2 [facility] CenterMonocytes # (Auto)2019-09-25 16:57:00* Test Item Value Reference Range Interpretation Comments Monocytes # (Auto) (test code = 742-7) 0.5 0.2-0.8 [facility] CenterEosinophils # (Auto)2019-09-25 16:57:00* Test Item Value Reference Range Interpretation Comments Eosinophils # (Auto) (test code = 711-2) 0.1 0.0-0.4 [facility] CenterBasophils # (Auto)2019-09-25 16:57:00* Test Item Value Reference Range Interpretation Comments Basophils # (Auto) (test code = 704-7) 0.0 0.0-0.1 [facility] CenterAbsolute Immature Granulocyte (auto 2019-09-25 16:57:00* Test Item Value Reference Range Interpretation Comments Absolute Immature Granulocyte (auto (cruzito t code = Absolute Immature Granulocyte (auto) 0.02 0-0.1 [facility] CenterBREAST,ECTBWV7319-71-04 15:30:00 RUN DATE: 04/04/19 [facility] PAGE 1 RUN TIME: 1530 Specimen Inqui ry RUN USER: INTERFACE PATIENT: BINTA RICH ACCT #: [id number] LOC: JAQUELIN U #: [id number] AGE/SX: 58/F ROOM: RE04/02/19REG DR: Brock Kaur Jr, MD : 60 BED: DIS: STATUS: PRE REF TLOC: SPEC #: [id number] RECD: 04/03/19 STATUS: VALDEMAR ZEE #: [id number] ISAIAH: 04/02/19- [facility] DR: Brock Kaur Jr, MD ENTERED: 04/03/19 SP TYPE: BX BREAST OTHR DR: Geni Candelaria MD ORDERED: GROSS COPIES TO: Brock Kaur Jr, MD [address], [address] [place] [address] Geni Haddad MD [address], [address] [place] [address] PROCEDURES: GROSS (04/04/19) TISSUES: 1. BREAST CORE BIOPSY - WITHOUT CALCIF ICATIONS LEFT 2. BREAST CORE BIOPSY - LEFT WITH CALCIFICATIONS C LINICAL HISTORY COLLECTION DATE: 04/02/19 LEFT BREAST CALCIFICATIONS FINAL DIAGNOSIS Left breast without calcifications, site not otherwise specified, stereotactic core biopsy: FATTY REPLACED BREAST TISSUE NO CALCIFICATIONS PRESENT NEGATIVE FOR MALIGNANCY Left breast with calcifications, site not otherwise specified, stereotactic core biopsy: CALCIFICATION IN AREA OF HYALINIZED FIBROADENOMA AREA OF HYALINIZED FI BROADENOMA WITHOUT CALCIFICATION FATTY BREAST PARENCHYMA WITH NO PATHOLOG IC ALTERATION NEGATIVE FOR MALIGNANCY RRB/roro D [id number] CONTINUED ON NEXT PAGE RUN JOSELUIS E: 04/04/19 [facility] PAGE 2 RUN TIME: 1530 Specimen Inquiry RUN USER: INTERFACE SPEC #: [id number] PATIENT: BINTA RICH # [id number] (Continued) MACROSCOPIC Specimen (1) is received in formalin, labeled "left breast without calcifications" and consist s of fragments of yellow fatty tissue and a small amount of renee fibrous tissue . The specimen measures 2.5 x 2.5 x 0.25 cm in aggregate. The tissue is enti rely submitted as (1). Specimen (2) is received in formalin, labeled with the patient's name, "left breast with calcification +" and consists of multipl e fragments of yellow fatty tissue with a small amount of renee fibrous tissue. The specimen measures 2.5 x 2.0 x 0.3 cm in aggregate. The tissue is submitt ed as (2). GROSS PERFORMED AT [facility] [address] [place] [address] (P) MICROSCOPIC All of the stains, including any controls performed , stain appropriately. MICROSCOPIC PERFORMED AT [facility] [address] [place] [address] (I) PERFORMING SITE Diagnosis performed at: [facility] [address] [place] [address] Signed SIGN ATURE ON FILE Bishnu Schafer MD 04/04/19 1530 -------- ---- END OF REPORT CT ABDOMEN/PELVIS [id number] 15:35:00 [place] [address] Patient Name: BINTA RICH MR #: [id number] : 1960 Age/Sex: 58/F Req #: [id number] Adm Physician: Ordered by: DIEGO RICO CHILDREN'S PROGRAM COORDINATOR Report #: [id number] Location: ER Room/Bed: Procedure: [id number] CT/CT ABDOMEN/PELVIS W Exam Date: 01/24/19 Exam Time: 1509 REPORT STATUS: Signed CT of the abdomen and pelvis, with contrast, 01/24/2019. History: Left lower quadrant abdominal pain. Comparison: None available. Tech nique: Multidetector CT scanning of the abdomen and pelvis was performed from the level of the lung bases to the inferior pubic rami after intravenous and o ral administration of contrast. Coronal and sagittal multiplanar reformations were obtained. RADIATION DOSE: Total DLP: 334 mGy*cm Dose modulation, iterative reconstruction, and/or weight based adjustment of the m A/kV was utilized to reduce the radiation dose to as low as reasonably achieva ble. Discussion: LUNG BASES: No visualized abnormalities. ABDOMEN: A 2.1 x 1.4 cm oval hypodense structure is present in the pancreatic tail holly suring 9 Hounsfield units in density. There is no adjacent inflammation. Pancr eas is otherwise unremarkable. The liver, gallbladder, biliary tree, spleen, a drenal glands, and kidneys are normal. The hepatic vein, portal vein, and sple domitila vein are patent. The abdominal aorta is within normal limits for size. A small hiatal hernia is present. The small bowel is unremarkable. The appendix is visualized and is normal. Multiple diverticuli are present thro ughout the colon, especially in the sigmoid. There is sigmoid wall thickening with adjacent mesenteric fat stranding. There is no focal fluid collection or evidence of free air. There is no evidence of adenopathy or free fluid. A sm all fat-containing umbilical hernia is present. PELVIS: The bladder, uterus , adnexa are unremarkable. There is no evidence of free fluid or adenopathy. 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 No other significant findings. IMPRESSION: 1. Sigmoid diverticulitis without evidence of perforation or abscess. 2. Canas creatic tail cystic lesion may represent simple cyst or IPMN. Recommend six-mo [facility] follow-up. Signed by: Quinton Burger on 01/24/2019 3:40 PM Dictate d By: QUINTON BURGER MD 1 540 Transcribed By: LASHAWN on 01/24/19 4890 COPY TO: DIEGO RICO NP Sodium Xwoic3956-35-52 14:54:00* Test Item Value Reference Range Interpretation Comments Sodium Level (test code = 2951-2) 137 136-145 [facility] CenterPotassium Tcqmv9063-10-31 14:54:00* Test Item Value Reference Range Interpretation Comments Potassium Level (test code = 2823-3) 4.3 3.5-5.1 [facility] CenterChloride Zqiuz9278-67-39 14:54:00* Test Item Value Reference Range Interpretation Comments Chloride Level (test code = 2075-0) 102 98-107 [facility] CenterCarbon Dioxide Yzeow3380-27-32 14:54:00* Test Item Value Reference Range Interpretation Comments Carbon Dioxide Level (test code = 2028-9) 22 22-29 [facility] CenterAnion Lbq5951-31-48 14:54:00* Test Item Value Reference Range Interpretation Comments Anion Gap (test code = 70029-6) 17.3 8-16 H [facility] CenterBlood Urea Fqnenvnw5440-65-54 14:54:00* Test Item Value Reference Range Interpretation Comments Blood Urea Nitrogen (test code = 3094-0) 20 7-26 [facility] CenterCreatinine2019-08-16 14:54:00* Test Item Value Reference Range Interpretation Comments Creatinine (test code = 2160-0) 0.78 0.57-1.11 [facility] CenterBUN/Creatinine Zzjuh9073-61-87 14:54:00* Test Item Value Reference Range Interpretation Comments BUN/Creatinine Ratio (test code = 3097-3) 26 6-25 H [facility] CenterEstimat Glomerular Filtration Rate 2019-01-24 14:54:00* Test Item Value Reference Range Interpretation Comments Estimat Glomerular Filtration Rate (test code = 732885739) > 60 >60 Ranges were taken from the National Kidney Disease Education Program and the [facility] literature.Reference ranges:60 or greater: Ydcgoe21-94 ( for 3 consecutive months): Chronic kidney disease 15 or less: Kidney failureUniversity Medical CenterGlucose Zcgyx0072-89-99 14:54:00* Test Item Value Reference Range Interpretation Comments Glucose Level (test code = AYC1743) 147 74-118 H [facility] CenterCalcium Adfdr3018-31-43 14:54:00* Test Item Value Reference Range Interpretation Comments Calcium Level (test code = 24824-9) 9.8 8.4-10.2 [facility] CenterMagnesium Ekymv5945-54-36 14:54:00* Test Item Value Reference Range Interpretation Comments Magnesium Level (test code = 73236-6) 2.7 1.3-2.1 H [facility] CenterTotal Fdzlxslui8093-36-06 14:54:00* Test Item Value Reference Range Interpretation Comments Total Bilirubin (test code = 1975-2) 0.9 0.2-1.2 [facility] CenterAspartate Amino Transf (AST/SGOT) 2019-01-24 14:54:00* Test Item Value Reference Range Interpretation Comments Aspartate Amino Transf (AST/SGOT) (test code = Aspartate Amino Transf (AST/SGOT)) 37 5-34 H [facility] CenterAlanine Aminotransferase (ALT/SGPT) 2019-01-24 14:54:00* Test Item Value Reference Range Interpretation Comments Alanine Aminotransferase (ALT/SGPT) (test code = 1742-6) 49 0-55 [facility] CenterTotal Sycaklb5056-84-79 14:54:00* Test Item Value Reference Range Interpretation Comments Total Protein (test code = 2885-2) 8.2 6.5-8.1 H [facility] CenterAlbumin2019-08-16 14:54:00* Test Item Value Reference Range Interpretation Comments Albumin (test code = 1751-7) 4.3 3.5-5.0 [facility] CenterGlobulin2019-08-16 14:54:00* Test Item Value Reference Range Interpretation Comments Globulin (test code = 33003-3) 3.9 2.3-3.5 H [facility] CenterAlbumin/Globulin Leedq8251-61-44 14:54:00 * Test Item Value Reference Range Interpretation Comments Albumin/Globulin Ratio (test code = 1759-0) 1.1 0.8-2.0 [facility] CenterAlkaline Cognorqfxhp2905-64-23 14:54:00* Test Item Value Reference Range Interpretation Comments Alkaline Phosphatase (test code = 6768-6) 98 40-150 [facility] CenterMagnesium Pllrd3112-69-55 14:54:00* Test Item Value Reference Range Interpretation Comments Magnesium Level (test code = 73390-1) 2.7 1.3-2.1 H [facility] CenterUrine YUY8794-83-95 14:53:00* Test Item Value Reference Range Interpretation Comments Urine WBC (test code = 5821-4) 0-5 0-5 [facility] CenterUrine MJH3268-92-69 14:53:00* Test Item Value Reference Range Interpretation Comments Urine RBC (test code = 76049-8) 0-5 0-5 [facility] CenterUrine Fwmpuewa9705-28-76 14:53:00* Test Item Value Reference Range Interpretation Comments Urine Bacteria (test code = 22366-2) FEW NONE [facility] CenterUrine Epithelial Qnqlu6257-04-80 14:53:00 * Test Item Value Reference Range Interpretation Comments Urine Epithelial Cells (test code = 45853-5) FEW NONE [facility] CenterUrine Amorphous Guvqhcne0807-03-42 14:53:00* Test Item Value Reference Range Interpretation Comments Urine Amorphous Sediment (test code = 8246-1) FEW FEW [facility] CenterUrine Ofunr1971-25-04 14:53:00* Test Item Value Reference Range Interpretation Comments Urine Mucus (test code = 8247-9) FEW RARE H [facility] CenterUrine HIL1826-14-69 14:53:00* Test Item Value Reference Range Interpretation Comments Urine WBC (test code = 5821-4) 0-5 0-5 [facility] CenterUrine VCA3547-60-51 14:53:00* Test Item Value Reference Range Interpretation Comments Urine RBC (test code = 69436-3) 0-5 0-5 [facility] CenterUrine Jxhlnnwy4598-50-96 14:53:00* Test Item Value Reference Range Interpretation Comments Urine Bacteria (test code = 01335-7) FEW NONE [facility] CenterUrine Epithelial Vufce0581-59-30 14:53:00 * Test Item Value Reference Range Interpretation Comments Urine Epithelial Cells (test code = 38442-6) FEW NONE [facility] CenterUrine Amorphous Arrlhvks8571-60-35 14:53:00* Test Item Value Reference Range Interpretation Comments Urine Amorphous Sediment (test code = 8246-1) FEW FEW [facility] CenterUrine Dsjqa2860-04-11 14:53:00* Test Item Value Reference Range Interpretation Comments Urine Mucus (test code = 8247-9) FEW RARE H [facility] CenterLactic Acid Lguuj8511-63-81 14:40:00* Test Item Value Reference Range Interpretation Comments Lactic Acid Level (test code = Lactic Acid Level) 16.3 4.5- 19.8 [facility] CenterLactic Acid Qxdak2648-64-34 14:40:00* Test Item Value Reference Range Interpretation Comments Lactic Acid Level (test code = Lactic Acid Level) 16.3 4.5- 19.8 [facility] CenterUrine [id number] 14:37:00* Test Item Value Reference Range Interpretation Comments Urine Color (test code = 5778-6) YELLOW [facility]LLOW [facility] Knywhgo3932-77-51 14:37:00* Test Item Value Reference Range Interpretation Comments Urine Clarity (test code = 40196-7) SL CLOUDY CLEAR [facility] Specific Egjucor8419-43-15 14:37:00 * Test Item Value Reference Range Interpretation Comments Urine Specific [place] (test code = 5811-5) >=1.030 1.010-1.02 5 [facility] [id number] 14:37:00* Test Item Value Reference Range Interpretation Comments Urine pH (test code = 15532-7) 5.5 5-7 [facility] Leukocyte Jkcmgqth7333-94-43 14:37:00* Test Item Value Reference Range Interpretation Comments Urine Leukocyte Esterase (test code = 17937-7) TRACE NEGATIV E H [facility] Uefhpxe2691-91-61 14:37:00* Test Item Value Reference Range Interpretation Comments Urine Nitrite (test code = 20769-7) NEGATIVE NEGATIVE [facility] Jhbkkav8954-04-76 14:37:00* Test Item Value Reference Range Interpretation Comments Urine Protein (test code = 15639-8) TRACE NEGATIVE H [facility] Glucose (UA)2019-01-24 14:37:00* Test Item Value Reference Range Interpretation Comments Urine Glucose (UA) (test code = 73413-9) NEGATIVE NEGATIVE [facility] Dkfezae5440-66-01 14:37:00* Test Item Value Reference Range Interpretation Comments Urine Ketones (test code = 66892-5) 1+ NEGATIVE H [facility] Yibocykpzkfq3985-58-99 14:37:00* Test Item Value Reference Range Interpretation Comments Urine Urobilinogen (test code = 47331-4) 0.2 0.2-1 [facility] Fzsylzkbx6867-79-65 14:37:00* Test Item Value Reference Range Interpretation Comments Urine Bilirubin (test code = 1977-8) NEGATIVE NEGATIVE [facility] Sjfmr0217-77-59 14:37:00* Test Item Value Reference Range Interpretation Comments Urine Blood (test code = 34274-0) NEGATIVE NEGATIVE [facility] Yfnpc9700-51-70 14:37:00* Test Item Value Reference Range Interpretation Comments Urine Color (test code = 5778-6) YELLOW YELLOW [facility] Zchpbbz5855-10-15 14:37:00* Test Item Value Reference Range Interpretation Comments Urine Clarity (test code = 55141-0) SL CLOUDY CLEAR [facility] Bvoescl1855-38-54 14:37:00 * Test Item Value Reference Range Interpretation Comments Urine Specific [place] (test code = 5811-5) >=1.030 1.010-1.02 5 [facility] [id number] 14:37:00* Test Item Value Reference Range Interpretation Comments Urine pH (test code = 70714-1) 5.5 5-7 [facility]ukocyte Tsnncoej4070-33-15 14:37:00* Test Item Value Reference Range Interpretation Comments Urine Leukocyte Esterase (test code = 90478-5) TRACE NEGATIV E H [facility] Beexclj5976-82-68 14:37:00* Test Item Value Reference Range Interpretation Comments Urine Nitrite (test code = 08910-8) NEGATIVE NEGATIVE [facility] Fobmbkd3548-41-04 14:37:00* Test Item Value Reference Range Interpretation Comments Urine Protein (test code = 24949-0) TRACE NEGATIVE H [facility] Glucose (UA)2019-01-24 14:37:00* Test Item Value Reference Range Interpretation Comments Urine Glucose (UA) (test code = 43241-8) NEGATIVE NEGATIVE [facility] Twlvvjp0297-99-19 14:37:00* Test Item Value Reference Range Interpretation Comments Urine Ketones (test code = 04387-0) 1+ NEGATIVE H [facility] Xdkltomzfueb8672-64-01 14:37:00* Test Item Value Reference Range Interpretation Comments Urine Urobilinogen (test code = 80943-2) 0.2 0.2-1 [facility] Ffpelzdpe3493-78-16 14:37:00* Test Item Value Reference Range Interpretation Comments Urine Bilirubin (test code = 1977-8) NEGATIVE NEGATIVE [facility] Xgcqi6963-39-97 14:37:00* Test Item Value Reference Range Interpretation Comments Urine Blood (test code = 13640-2) NEGATIVE NEGATIVE [facility] Blood Wxkam5069-67-84 14:24:00* Test Item Value Reference Range Interpretation Comments White Blood Count (test code = 6690-2) 11.81 4.8-10.8 H [facility] Lydau7989-31-34 14:24:00* Test Item Value Reference Range Interpretation Comments Red Blood Count (test code = 789-8) 5.18 3.6-5.1 H [facility]Hemoglobin2019-08-16 14:24:00* Test Item Value Reference Range Interpretation Comments Hemoglobin (test code = 47938-2) 14.7 12.0-16.0 [facility]ematocrit2019-08-16 14:24:00* Test Item Value Reference Range Interpretation Comments Hematocrit (test code = 4544-3) 44.6 34.2-44.1 H [facility] CenterMean Corpuscular Tyvzyh2824-41-73 14:24:00* Test Item Value Reference Range Interpretation Comments Mean Corpuscular Volume (test code = 787-2) 86.1 81-99 [facility] Corpuscular Lvntnizbyz8749-24-68 14:24:00* Test Item Value Reference Range Interpretation Comments Mean Corpuscular Hemoglobin (test code = 785-6) 28.4 28-32 [facility] CenterMean Corpuscular Hemoglobin Concent 2019-01-24 14:24:00* Test Item Value Reference Range Interpretation Comments Mean Corpuscular Hemoglobin Concent (test code = 786-4) 33.0 31-35 [facility] Center[facility] Cell Distribution Rehrs0672-99-86 14:24:00* Test Item Value Reference Range Interpretation Comments Red Cell Distribution Width (test code = 61377-9) 13.2 11.7 -14.4 [facility] CenterPlatelet Ilnno2316-09-37 14:24:00* Test Item Value Reference Range Interpretation Comments Platelet Count (test code = 777-3) 244 140-360 [facility] CenterNeutrophils (%) (Auto)2019-01-24 14:24:00 * Test Item Value Reference Range Interpretation Comments Neutrophils (%) (Auto) (test code = 67732-5) 76.9 38.7-80.0 [facility] CenterLymphocytes (%) (Auto)2019-01-24 14:24:00 * Test Item Value Reference Range Interpretation Comments Lymphocytes (%) (Auto) (test code = 736-9) 14.8 18.0-39.1 L [facility] Center[facility] (%) (Auto)2019-01-24 14:24:00* Test Item Value Reference Range Interpretation Comments Monocytes (%) (Auto) (test code = 5905-5) 7.1 4.4-11.3 [facility]Eosinophils (%) (Auto)2019-01-24 14:24:00 * Test Item Value Reference Range Interpretation Comments Eosinophils (%) (Auto) (test code = 713-8) 0.5 0.0-6.0 [facility] (%) (Auto)2019-01-24 14:24:00* Test Item Value Reference Range Interpretation Comments Basophils (%) (Auto) (test code = 706-2) 0.3 0.0-1.0 [facility] CenterIM GRANULOCYTES %2019-01-24 14:24:00* Test Item Value Reference Range Interpretation Comments IM GRANULOCYTES % (test code = IM GRANULOCYTES %) 0.4 0.0- 1.0 [facility] CenterNeutrophils # (Auto)2019-01-24 14:24:00* Test Item Value Reference Range Interpretation Comments Neutrophils # (Auto) (test code = 751-8) 9.1 2.1-6.9 H [facility] CenterLymphocytes # (Auto)2019-01-24 14:24:00* Test Item Value Reference Range Interpretation Comments Lymphocytes # (Auto) (test code = 83659-1) 1.8 1.0-3.2 [facility] CenterMon[facility] # (Auto)2019-01-24 14:24:00* Test Item Value Reference Range Interpretation Comments Monocytes # (Auto) (test code = 742-7) 0.8 0.2-0.8 [facility] CenterEosinophils # (Auto)2019-01-24 14:24:00* Test Item Value Reference Range Interpretation Comments Eosinophils # (Auto) (test code = 711-2) 0.1 0.0-0.4 [facility] Center[facility] # (Auto)2019-01-24 14:24:00* Test Item Value Reference Range Interpretation Comments Basophils # (Auto) (test code = 704-7) 0.0 0.0-0.1 [facility] CenterAbsolute Immature Granulocyte (auto 2019-01-24 14:24:00* Test Item Value Reference Range Interpretation Comments Absolute Immature Granulocyte (auto (cruzito t code = Absolute Immature Granulocyte (auto) 0.05 0-0.1 [facility] A[facility]EL[facility] W/[id number] 11:19:00 Name: LAYLABINTA ALFONSO [facility] : 1960 Age/S: 58 / F [address] [facility] Unit #: [id number] Loc: [place] [address] Phys: Bridget Fulton MD Acct: [id number] Di s Date: Status: REG ER PHONE #: Exam Date: 12/21/2018 1036 FAX #: [phone] Reason: R sided abd pain eval for appy EXAMS: CPT CODE: [id number] CT ABD PELVIS W/CONT 95015 REASON FOR EXAM: R sided abd pain eval for appy EXAM ORDER DATE: 12/21/2018 10:19 AM Ordering M.DTravis: Shahzad Fulton MD PROCEDURE: - CT ABD PELVIS W/CONT contrast-enhanced axial CT images were acquired through the abdomen/pelvis at 5 mm intervals. Sagittal and coronal reformatted images were generated. Automated exposure control was utilized for this reduct ion. Phases of contrast: venous and delayed COMPARIS ON: Abdominal ultrasound 1 hour earlier FINDINGS: V isualized thorax: Normal Hepatobiliary system: Decreased attenuati on of the liver compatible with hepatic steatosis. No hepatic masses are s een. No intra or extra hepatic biliary ductal dilatation. Gallbladder is w ithin normal limits. Pancreas: 2.2 x 1.6 cm cystic lesion in the tail of the pancreas. No definite internal septations are seen. Spleen: Normal Adrenal glands: Normal Genit ourinary system: Calcifications within the uterus may represent fibroids. Otherwise normal. Gastrointestinal tract and appendix: There is di verticular disease seen throughout the colon that is most pronounced in th e sigmoid colon. There is mural thickening and adjacent fat stranding invo lving a 7 cm segment of the proximal ascending colon. Appendix is within normal limits. Cecum was within normal limits. The small bowel is josiah ssly unremarkable. Abdominal vascular structures: Atherosclerotic disease is scattered throughout the abdominal aorta and iliac arteries. Peritoneum and retroperitoneum: No free air. As mentioned earlier PAGE 1 Signed Report (CONTINUED) N rex: BINTA RICH [facility] : 1 08/05/1959 Age/S: 58 / F [address] [facility] Unit #: [id number] Loc: [place] [address] Phys: Len Fulton MD Acct: [id number] Dis D ate: Status: REG ER PHONE #: Exam Date: 12/21/2018 1036 FAX #: [phone] Reason: R sided abd pain eval for appy EXAMS: CPT CODE: [id number] CT ABD PELVIS W/ CONT 24081 <Continued> there is stranding of the fat adjacent to the proximal ascending colon. No discrete fluid collection is seen however. There are a few subcentimeter pericolonic lymph nodes in the right hemiabdomen which are nonspecific and may be reactive. Musculoskeletal structures and abdominal wall: Mild degenerative changes are present in the lumbar spine. Small fat- containing umbilical hernia is present. IMPRESSION: Inflammatory changes involving a 7 cm segment of the ascending colon. Given the presence of diffuse diverticular disease throughout the colon, this finding likely represents diverticulitis. No free air or rim-enh ancing fluid collection is seen. 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 This can be further evalua hadley with a nonemergent MRCP to assess the relationship of this lesion to the pancreatic duct. Hepatic steatosis. Electronically Sign ed by Trey Frankel MD on 12/21/2018 at 1119 Reported and signed by: Trey Frankel MD CC: Brock Kaur M.D.; Vipul Fulton MD Technologist:DORA CULLEN RT(R),CT CTDI: DLP: Trnscb Date/Time: 12/21/2018 (1119) t.SDR.RR31 Orig Print D/T: S: 12/21/2018 (2952) PAGE 2 Signed Report - US ABDOMEN [id number] 10:10:00 Name: BINTA RICH [facility] : 1960 Age/S: 58 / F [address] [facility] Unit #: [id number] Loc: [place] [address] Phys: Bridget Fulton MD Acct: [id number] Di s Date: Status: REG ER PHONE #: Exam Date: 12/21/2018 0943 FAX #: Reason: RUQ pain EXAMS: CPT CODE: [id number] US ABDOMEN LTD 15788 REASON FOR EXAM: RUQ pain EXAM ORDER DATE: 12/21/2018 8:29 AM Attendjere jimenez M.D.: Shahzad Fulton MD PROCEDURE: - [...] PAGE 1 Signed Re port (CONTINUED) Name: BINTA RICH [facility] : 1960 Age/S: 58 / F [address] [facility] Unit #: [id number] Loc: [place] [address] Phys: Shahzad Fulton MD Acct: [id number] Dis Date: Status: REG ER PHONE #: [phone] Exam Date: 12/21/2018 0943 FAX #: [phone] Reason: RUQ pain EXAMS: CPT CODE: [id number] ABDOMEN LTD 43807 <Continued> cysts/masses: none hydronephrosis: none There is no evidence of ascites. IMPRESSION: Hepatic steatosis. at 1010 Reported and signed by: Trey Frankel MD CC: Brock Kaur M.D.; Shahzad Fulton MD Technologist: Nilam Vega Trnflb Date/Time: 12/21/2018 (1010) [email or web address] Orig Print D/T: S: 12/21/2018 (1013) Probe: PAGE 2 Signed Report - XR CHEST 1 [id number] 09:10:00 Name: LAYLABINTA ALFONSO [facility] : 1960 Age/S:58 /F [address] [facility] Unit#:[id number] Loc: [place] [address] Phys: Shahzad Fulton MD Dis Date: PHONE #: [phone] Status: REG ER FAX #: [phone] Exam Date: 12/21/2018 Reason: n/v EXAMS: CPT CODE: [id number] XR CHEST 1 V 79452 REASON FOR EXAM: n/v Exam Order Date: [...] (0910) [id number].[email or web address].RR31 Orig Print D/T: S: 12/21/2018 (7190) PAGE 1 Signed Report COMPREHENSIVE METABOLIC [id number] 08:55:00* Test Item Value Reference Range Interpretation Comments SODIUM (test code = NA) 138 mmol/L 135-148 N POTASSIUM (test code = K) 3.6 mmol/L 3.5-5.1 N CHLORIDE (test code = CL) 102 mmol/L 101-109 N CARBON DIOXIDE (test code = CO2) 27.1 mmol/L 21-32 N ANION GAP (test code = GAP) 13 mmol/L 10-20 N GLUCOSE (test code = GLU) 130 mg/dL 74-106 H BLOOD UREA NITROGEN (test code = BUN) 18 mg/dL 3-21 N CREATININE (test code = CREAT) 0.83 mg/dL 0.55-1.3 N BUN/CREATININE RATIO (test code = BUN/CREA) 21.7 10-20 H TOTAL PROTEIN (test code = PROT) 7.5 g/dL 6.5-8.4 N ALBUMIN (test code = ALB) 3.3 g/dL 3.4-4.8 L GLOBULIN (test code = GLOB) 4.2 G/DL 1-10 N ALBUMIN/GLOBULIN RATIO (test code = A/G) 0.8 RATIO 0.75-1.50 N CALCIUM (test code = CA) 9.1 mg/dL 8.4-10.2 N BILIRUBIN TOTAL (test code = BILT) 0.70 mg/dL 0.0-1.0 N SGOT/AST (test code = AST) 18 U/L 6-32 N SGPT/ALT (test code = ALT) 41 U/L 12-78 N N ote: Change in REFERENCE RANGE due to new reagent method. ALKALINE PHOSPHATASE TOTAL (test code = ALKP) 106 U/L 38-126 N [id number] 08:55:00* Test Item Value Reference Range Interpretation Comments LIPASE (test code = LIP) 81 U/L 128-270 L [id number] 08:55:00* Test Item Value Reference Range Interpretation Comments MAGNESIUM (test code = MAG) 1.9 mg/dL 1.6-2.3 N [id number] 08:55:00* Test Item Value Reference Range Interpretation Comments TROPONIN-I (test code = TROPI) <0.015 ng/mL 0.00-0.056 N COMPREHENSIVE METABOLIC [id number] 08:53:00* Test Item Value Reference Range Interpretation Comments SODIUM (test code = NA) 138 mmol/L 135-148 N POTASSIUM (test code = K) 3.6 mmol/L 3.5-5.1 N CHLORIDE (test code = CL) 102 mmol/L 101-109 N CARBON DIOXIDE (test code = CO2) 27.1 mmol/L 21-32 N ANION GAP (test code = GAP) 13 mmol/L 10-20 N GLUCOSE (test code = GLU) 130 mg/dL 74-106 H BLOOD UREA NITROGEN (test code = BUN) 18 mg/dL 3-21 N CREATININE (test code = CREAT) 0.83 mg/dL 0.55-1.3 N BUN/CREATININE RATIO (test code = BUN/CREA) 21.7 10-20 H TOTAL PROTEIN (test code = PROT) gram/dL 6.4-8.2 ALBUMIN (test code = ALB) g/dL 3.4-5.0 GLOBULIN (test code = GLOB) g/dL 2.7-4.2 ALBUMIN/GLOBULIN RATIO (test code = A/G) 0.75-1.50 CALCIUM (test code = CA) 9.1 mg/dL 8.4-10.2 N BILIRUBIN TOTAL (test code = BILT) mg/dL 0.2-1.2 SGOT/AST (test code = AST) IUnit/L 15-37 SGPT/ALT (test code = ALT) U/L 10-69 ALKALINE PHOSPHATASE TOTAL (test code = ALKP) IUnit/L 45-117 [id number] 08:53:00* Test Item Value Reference Range Interpretation Comments LIPASE (test code = LIP) Unit/L 144-286 [id number] 08:53:00* Test Item Value Reference Range Interpretation Comments MAGNESIUM (test code = MAG) mg/dL 1.8-2.4 [id number] 08:53:00* Test Item Value Reference Range Interpretation Comments TROPONIN-I (test code = TROPI) ng/mL 0-0.045 URINALYSIS [id number] 08:44:00* Test Item Value Reference Range Interpretation Comments UA COLOR (test code = COLU) YELLOW YELLOW UA APPEARANCE (test code = APPU) CLEAR CLEAR UA GLUCOSE DIPSTICK (test code = DGLUU) norm mg/dL NEGATIVE UA BILIRUBIN DIPSTICK (test code = BILU) NEGATIVE mg/dL NEGATIVE UA KETONE DIPSTICK (test code = KETU) neg mg/dL NEGATIVE UA SPECIFIC GRAVITY (test code = SGU) 1.010 1.001-1.035 UA BLOOD DIPSTICK (test code = PHI) 10 (Trace) Shamir/uL NEGATIVE A UA PH DIPSTICK (test code = DAE) 7.0 5.0-8.0 UA PROTEIN DIPSTICK (test code = PROU) 15 (TRACE) mg/dL Neg-15 A UA UROBILINIOGEN DIPSTICK (test code = URO) 1 mg/dL 0.0-0.2 A UA NITRITE DIPSTICK (test code = CHRIS) NEGATIVE NEGATIVE UA LEUKOCYTE ESTERASE DIPSTICK (test code = LEUU) 25 María Elena/uL (Tra ce) uL NEGATIVE A UA WBC (test code = WBCU) 6-10 per HPF 0-5 A UA RBC (test code = RBCU) 5-10 per HPF 0-5 A UA EPITHELIAL CELLS (test code = EPIU) Few (2-5/hpf) per HPF Few UA BACTERIA (test code = BACU) FEW per HPF NONE Urine Source? Clean CatchURINALYSIS [id number] 08:43:00* Test Item Value Reference Range Interpretation Comments UA COLOR (test code = COLU) YELLOW YELLOW UA APPEARANCE (test code = APPU) CLEAR CLEAR UA GLUCOSE DIPSTICK (test code = DGLUU) norm mg/dL NEGATIVE UA BILIRUBIN DIPSTICK (test code = BILU) NEGATIVE mg/dL NEGATIVE UA KETONE DIPSTICK (test code = KETU) neg mg/dL NEGATIVE UA SPECIFIC GRAVITY (test code = SGU) 1.010 1.001-1.035 UA BLOOD DIPSTICK (test code = PHI) 10 (Trace) Shamir/uL NEGATIVE A UA PH DIPSTICK (test code = DAE) 7.0 5.0-8.0 UA PROTEIN DIPSTICK (test code = PROU) 15 (TRACE) mg/dL Neg-15 A UA UROBILINIOGEN DIPSTICK (test code = URO) 1 mg/dL 0.0-0.2 A UA NITRITE DIPSTICK (test code = CHRIS) NEGATIVE NEGATIVE UA LEUKOCYTE ESTERASE DIPSTICK (test code = LEUU) 25 María Elena/uL (Tra ce) uL NEGATIVE A UA WBC (test code = WBCU) per HPF 0-5 UA RBC (test code = RBCU) per HPF 0-5 UA EPITHELIAL CELLS (test code = EPIU) per HPF Few UA BACTERIA (test code = BACU) per HPF NONE Urine Source? Clean CatchCBC W/AUTO [id number] 08:42:00* Test Item Value Reference Range Interpretation Comments WHITE BLOOD CELL (test code = WBC) 10.9 K/mm3 4.5-12.5 N RED BLOOD CELL (test code = RBC) 4.61 mill/mm3 3.7-5.2 N HEMOGLOBIN (test code = HGB) 13.4 gram/dL 11.5-15.5 N HEMATOCRIT (test code = HCT) 40.3 % 36.0-46.0 N MEAN CELL VOLUME (test code = MCV) 87.4 fL 80-98 N MEAN CELL HGB (test code = MCH) 29.1 picogram 27.0-33.0 N MEAN CELL HGB CONCETRATION (test code = MCHC) 33.3 gram/dL 33.0-36. 0 N RED CELL DISTRIBUTION WIDTH (test code = RDW) 12.8 % 11.6-16. 2 N RED CELL DISTRIBUTION WIDTH SD (test code = RDW-SD) 41.9 fL 37 .0-51.0 N PLATELET COUNT (test code = PLT) 226 K/mm3 150-450 N MEAN PLATELET VOLUME (test code = MPV) 10.3 fL 6.7-11.0 N NEUTROPHIL % (test code = NT%) 70.8 % 39.0-69.0 H LYMPHOCYTE % (test code = LY%) 17.9 % 25.0-55.0 L MONOCYTE % (test code = MO%) 10.1 % 0.0-10.0 H EOSINOPHIL % (test code = EO%) 0.7 % 0.0-5.0 N BASOPHIL % (test code = BA%) 0.3 % 0.0-1.0 N NEUTROPHIL # (test code = NT#) 7.69 K/mm3 1.8-7.7 N LYMPHOCYTE # (test code = LY#) 1.95 K/mm3 1.0-5.0 N MONOCYTE # (test code = MO#) 1.10 K/mm3 0-0.8 H EOSINOPHIL # (test code = EO#) 0.08 K/mm3 0.0-0.5 N BASOPHIL # (test code = BA#) 0.03 K/mm3 0.0-0.2 N MANUAL DIFF REQUIRED (test code = MDIFF) NO
[2019-11-16] MEDS ORDERED: PANTOPRAZOLE 40 MG 10ML VIAL IV STA (14:15)
[2019-11-16] MEDS ORDERED: SODIUM CHLORIDE 0.9% 1000ML 1,000 ML IV STA (14:15)
[2019-11-16 14:43] LABS: BASOPHILS # (AUTO) 0.1 (0.0-0.1); BASOPHILS % 0.9 % (0.0-1.0); EOSINOPHILS # (AUTO) 0.1 (0.0-0.4); HEMATOCRIT 46.1 % (34.2-44.1); HEMOGLOBIN 14.6 g/dL (12.0-16.0); LYMPHOCYTES # (AUTO) 1.7 (1.0-3.2); LYMPHOCYTES % 29.5 % (18.0-39.1); MEAN CORPUSCULAR HEMOGLOBIN 27.6 pg (28-32); MEAN CORPUSCULAR HGB CONC 31.7 g/dL (31-35); MEAN CORPUSCULAR VOLUME 87.1 fL (81-99); MONOCYTES # (AUTO) 0.5 (0.2-0.8); MONOCYTES % 8.4 % (4.4-11.3); NEUTROPHILS # (AUTO) 3.5 (2.1-6.9); NEUTROPHILS % 59.9 % (38.7-80.0); PLATELET COUNT 308 x10e3/uL (140-360); RED BLOOD COUNT 5.29 x10e6/uL (3.6-5.1); RED CELL DISTRIBUTION WIDTH 13.4 % (11.7-14.4)
[2019-11-16 14:48] LABS: CLARITY,URINE CLEAR (CLEAR); COLOR,URINE YELLOW (YELLOW); LEUKOCYTE ESTERASE ,URINE NEGATIVE (NEGATIVE); NITRITE,URINE NEGATIVE (NEGATIVE)
[2019-11-16 14:49] LABS: BILIRUBIN,URINE NEGATIVE (NEGATIVE); KETONES,URINE NEGATIVE (NEGATIVE); PROTEIN,URINE DIPSTICK NEGATIVE (NEGATIVE); URINE UROBILINOGEN 0.2 mg/dL (0.2 - 1)
[2019-11-16 14:57] LABS: BACTERIA,URINE RARE /HPF; EPITHELIAL CELLS,URINE FEW /LPF; RBC,URINE 0-5 /HPF (0-5); WBC,URINE (MAN) 0-5 /HPF (0-5)
[2019-11-16 14:57] LABS: INR 0.8; PROTHROMBIN TIME 11.5 seconds (11.9-14.5)
[2019-11-16 14:58] LABS: PARTIAL THROMBOPLASTIN TIME 28.7 seconds (23.8-35.5)
[2019-11-16 14:59] LABS: ALANINE AMINOTRANSFERASE 50 IU/L (0-55); ALBUMIN 4.3 g/dL (3.5-5.0); ALKALINE PHOSPHATASE 131 IU/L (40-150); ANION GAP 14.9 mmol/L (8-16); BLOOD UREA NITROGEN 20 mg/dL (7-26); BUN/CREATININE RATIO 25 (6-25); CALCIUM 10.7 mg/dL (8.4-10.2); CARBON DIOXIDE 26 mmol/L (22-29); CHLORIDE 102 mmol/L (98-107); CREATINE KINASE 72 IU/L (29-168); EST GLOMERULAR FILTRATION RATE > 60 ML/MIN (60-); GLUCOSE 119 mg/dL (74-118); MAGNESIUM 2.1 MG/DL (1.3-2.1); POTASSIUM 3.9 mmol/L (3.5-5.1); SODIUM 139 mmol/L (136-145)
[2019-11-16] MEDS ORDERED: LIDOCAINE VISC 2% SOLN 15 ML UDC PO ONE (15:00)
[2019-11-16] MEDS ORDERED: MAGNESIUM/ALUMINUM/SIMETHICONE 30 ML UDC PO ONE (15:00)
[2019-11-16] MEDS ORDERED: MAALOX/LIDOCAINE/BENADRYL/NYST 30 ML BTL PO ONE (15:00)
[2019-11-16] MEDS ORDERED: BELLADONNA ALK/PHENOBARBITAL 5 ML UDC PO ONE (15:00)
[2019-11-16 15:18] VITALS: BP 136/74
--- NOTE | 2019-11-16 15:33 | Emergency Department Note ---
History of Present Illnes History of Present Illness Chief Complaint: Abdominal Complaints History of Present Illness This is a 59 year old female PATIENT IN FROM HOME WITH COMPLAINTS OF EPIGASTRIC AND LEFT SIDED ABDOMINAL PAIN OFF AND ON SINCE SUNDAY. PATIENT DENIES ANY NAUSEA, VOMITING, OR SHORTNESS OF BREATH. PATIENT ALSO DENIES COUGH, CONGESTION OR SHORTNESS OF BREATH. STATES PAIN IS A 4/10 AT THIS TIME AND GETS WORSE AFTER SHE EATS. RESP EVEN AND NONLABORED, APPEARS IN NO DISTRESS, AMBULATORY WITHOUT ASSISTANCE. 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 Any updates have been documented here. Past Medical History Recent Fever: No Clinical Suspicion of Infectio: No New/Unexplained Change in Ment: No Other Medical History: DIVERTICULITIS Past Surgical History: Other Surgery: X 3 FATTY TUMOR REMOVAL Social History Smoking Cessation: Never Smoker Counseling Performed: No Alcohol Use: None Any Illegal Drug Use: No TB Exposure/Symptoms: No Physically hurt or threatened: No Family History Family history of heart diseas: No Other Last Tetanus: UNKNOWN Any Pre-Existing Lines (PICC,: No Is patient up to date on immun: Yes Last Flu: ood Last Pneumovax: ood Review of Systems Review of Systems Constitutional: no symptoms EENTM: no symptoms Cardiovascular: no symptoms Respiratory: no symptoms Gastrointestinal: as per HPI, abdominal pain; nausea, vomiting Genitourinary: no symptoms Musculoskeletal: no symptoms Neurological: no symptoms Psychological: no symptoms Endocrine: no symptoms Hematological/Lymphatic: no symptoms Review of other systems All other systems reviewed and negative. Physical Exam Related Data Allergies: Coded Allergies: No Known Allergies (Unverified , 01/18/11) Triage Vital Signs Vital Signs Date Time Temp Pulse Resp B/P (MAP) Pulse Ox O2 Delivery O2 Flow Rate FiO2 11/16/19 14:00 98.0 93 16 179/101 98 Physical Exam CONSTITUTIONAL Constitutional: well-developed, well-nourished HENT HENT: normocephalic, atraumatic, oropharynx clear/moist, nose normal HENT L/R: left ext ear normal, right ext ear normal EYES Eyes: PERRL, conjunctivae normal NECK Neck: ROM normal PULMONARY Pulmonary: effort normal, breath sounds normal CARDIOVASCULAR Cardiovascular: regular rhythm, heart sounds normal, capillary refill normal, normal rate GASTROINTESTINAL Abdominal: soft, nontender, bowel sounds normal; tender, left CVA tenderness, right CVA tenderness GENITOURINARY Genitourinary: exam deferred SKIN Skin: warm, dry MUSCULOSKELETAL Musculoskeletal: ROM normal NEUROLOGICAL Neurological: alert, oriented x 3, no gross motor or sensory deficits PSYCHOLOGICAL Psychological: mood/affect normal, judgement normal Results Laboratory Result Diagram: 11/16/19 1415 11/16/19 1415 Laboratory Laboratory Tests Test 11/16/19 14:15 11/16/19 14:00 White Blood Count 5.86 x10e3/uL (4.8-10.8) Red Blood Count 5.29 x10e6/uL (3.6-5.1) Hemoglobin 14.6 g/dL (12.0-16.0) Hematocrit 46.1 % (34.2-44.1) Mean Corpuscular Volume 87.1 fL (81-99) Mean Corpuscular Hemoglobin 27.6 pg (28-32) Mean Corpuscular Hemoglobin Concent 31.7 g/dL (31-35) Red Cell Distribution Width 13.4 % (11.7-14.4) Platelet Count 308 x10e3/uL (140-360) Neutrophils (%) (Auto) 59.9 % (38.7-80.0) Lymphocytes (%) (Auto) 29.5 % (18.0-39.1) Monocytes (%) (Auto) 8.4 % (4.4-11.3) Eosinophils (%) (Auto) 1.0 % (0.0-6.0) Basophils (%) (Auto) 0.9 % (0.0-1.0) Neutrophils # (Auto) 3.5 (2.1-6.9) Lymphocytes # (Auto) 1.7 (1.0-3.2) Monocytes # (Auto) 0.5 (0.2-0.8) Eosinophils # (Auto) 0.1 (0.0-0.4) Basophils # (Auto) 0.1 (0.0-0.1) Absolute Immature Granulocyte (auto 0.02 x10e3/uL (0-0.1) Prothrombin Time 11.5 seconds (11.9-14.5) Prothromb Time International Ratio 0.80 Activated Partial Thromboplast Time 28.7 seconds (23.8-35.5) Sodium Level 139 mmol/L (136-145) Potassium Level 3.9 mmol/L (3.5-5.1) Chloride Level 102 mmol/L (98-107) Carbon Dioxide Level 26 mmol/L (22-29) Anion Gap 14.9 mmol/L (8-16) Blood Urea Nitrogen 20 mg/dL (7-26) Creatinine 0.80 mg/dL (0.57-1.11) Estimat Glomerular Filtration Rate > 60 ML/MIN (60-) BUN/Creatinine Ratio 25 (6-25) Glucose Level 119 mg/dL (74-118) Calcium Level 10.7 mg/dL (8.4-10.2) Magnesium Level 2.1 MG/DL (1.3-2.1) Total Bilirubin 0.4 mg/dL (0.2-1.2) Aspartate Amino Transf (AST/SGOT) 31 IU/L (5-34) Alanine Aminotransferase (ALT/SGPT) 50 IU/L (0-55) Alkaline Phosphatase 131 IU/L (40-150) Creatine Kinase 72 IU/L (29-168) Creatine Kinase MB 1.00 ng/mL (0-5.0) Troponin I < 0.001 ng/mL (0-0.300) B-Type Natriuretic Peptide < 10.0 pg/mL (0-100) Total Protein 8.7 g/dL (6.5-8.1) Albumin 4.3 g/dL (3.5-5.0) Globulin 4.4 g/dL (2.3-3.5) Albumin/Globulin Ratio 1.0 (0.8-2.0) Urine Color Yellow (YELLOW) Urine Clarity Clear (CLEAR) Urine pH 7 (5 - 7) Urine Specific [place] 1.025 (1.010-1.025) Urine Protein Negative (NEGATIVE) Urine Glucose (UA) Negative (NEGATIVE) Urine Ketones Negative (NEGATIVE) Urine Blood Negative (NEGATIVE) Urine Nitrite Negative (NEGATIVE) Urine Bilirubin Negative (NEGATIVE) Urine Urobilinogen 0.2 mg/dL (0.2 - 1) Urine Leukocyte Esterase Negative (NEGATIVE) Urine RBC 0-5 /HPF (0-5) Urine WBC 0-5 /HPF (0-5) Urine Epithelial Cells Few /LPF (NONE) Urine Bacteria Rare /HPF (NONE) Lab results reviewed: Yes Critical Care Time Subsequent provider I assumed direction of critical care for this patient from another provider of my specialty. Assessment & Plan Reassessment Reassessment C/O ABD PAIN WITH H/O DIVERTICULITIS BUT ALTHOUGH SHE HAS THE BURNING PAIN CURRENTLY (POINTS TO [facility]) SHE IS TOTALLY NON-TENDER SO UNLIKELY TO BE DIVERTICULITIS - MORE LIKELY TO BE GASTRITIS AND SHE HAS BEEN HAVING GERD SX'S - WILL CHECK CBC, CHEM'S, UA - R/O LEUKOCYTOSIS, UTI, ELEVATED LFT'S PT FEELS BETTER, TOTAL RELIEF WITH PROTONIX IV AND GI COCKTAIL Assessment & Plan Final Impression: (1) Gastritis (2) GERD (gastroesophageal reflux disease) Assessment & Plan DC HOME, PROTONIX, BENTYL DIRECTED, F/U PCP & M MARISOL BLAND DIET Depart Disposition: HOME, SELF-CARE Last Vital Signs Date Time Temp Pulse Resp B/P (MAP) Pulse Ox O2 Delivery O2 Flow Rate FiO2 11/16/19 14:53 78 18 136/74 98 11/16/19 14:00 98.0 Home Meds Active Scripts Tramadol Hcl (ULTRAM) 50 Mg Tablet, 50 MG PO Q6H PRN for Mild Pain (1-3) or Fever>100.8, #15 TAB Prov:LEVAR SIDHU FISHER LAMPARA NET 01/24/19 Metronidazole (FLAGYL) 500 Mg Tablet, 500 MG PO BID, #14 0 Refills Prov:LEVAR SIDHU FISHER LAMPARA NET 01/24/19 Ciprofloxacin Hcl (CIPRO) 500 Mg Tablet, 500 MG PO BID, #20 TAB 0 Refills Prov:LEVAR SIDHU FISHER LAMPARA NET 01/24/19 Reported Medications [No Meds] No Conflict Check 11/03/16 Medications in the ED Pantoprazole Sodium 40 mg ONCE STAT IV Last administered on 11/16/19at 14:49; Admin Dose 40 MG; Start 11/16/19 at 14:15; Stop 11/16/19 at 14:18; Status DC Sodium Chloride 1,000 ml @ 0 mls/hr Q0M STAT IV Last administered on 11/16/19at 14:49; Admin Dose 999 MLS/HR; Start 11/16/19 at 14:15; Stop 11/16/19 at 14:17; Status DC Magnesium Aluminum Silicate 30 ml ONCE ONCE PO ; Start 11/16/19 at 15:00; Stop 11/16/19 at 15:01; Status Cancel Belladonna Alkaloids/ Phenobarbital 10 ml NOW ONCE PO ; Start 11/16/19 at 15:00; Stop 11/16/19 at 15:01; Status Cancel Lidocaine HCl 10 ml ONCE ONCE PO ; Start 11/16/19 at 15:00; Stop 11/16/19 at 15:01; Status Cancel Magnesium Aluminum Silicate 30 ml ONCE ONCE PO Last administered on 11/16/19at 14:49; Admin Dose 30 ML; Start 11/16/19 at 15:00; Stop 11/16/19 at 15:01; Status DC JUAN MATT MD Nov 16, 2019 15:33
== END 2019-11-16 15:30 | disposition home or self-care (01) ==
LOC: ER 13:56
DX: R10.13 Epigastric pain (principal); R10.12 Left upper quadrant pain; K29.70 Gastritis, unspecified, without bleeding; K21.9 Gastro-esophageal reflux disease without esophagitis; Z87.19 Personal history of other diseases of the digestive system
CPT/HCPCS: 36415; 80053; 81001; 82550; 82553; 83735; 83880; 84484; 85025; 85610; 85730; 87086; 93005; 99284; C9113; J7030; 82948

== ENCOUNTER 2020-03-28 01:06 | Emergency (ER) | payer OTHER ==
[~2020-03-28] VITALS: Ht 149.9 cm; Wt 63.5 kg
[2020-03-28] MEDS ORDERED: PANTOPRAZOLE 40 MG 10ML VIAL IV STA (01:21)
[2020-03-28] MEDS ORDERED: ONDANSETRON HCL INJ 2MG/ML 2ML 2 MG/ML VIAL IV STA (01:21)
[2020-03-28] MEDS ORDERED: LIDOCAINE VISC 2% SOLN 15 ML UDC PO ONE (01:30)
[2020-03-28] MEDS ORDERED: MAGNESIUM/ALUMINUM/SIMETHICONE 30 ML UDC PO ONE (01:30)
[2020-03-28] MEDS ORDERED: BELLADONNA ALK/PHENOBARBITAL 5 ML UDC PO ONE (01:30)
[2020-03-28 02:15] LABS: ALANINE AMINOTRANSFERASE 46 IU/L (0-55); ALBUMIN 3.9 g/dL (3.5-5.0); ALKALINE PHOSPHATASE 105 IU/L (40-150); ANION GAP 13.9 mmol/L (8-16); BLOOD UREA NITROGEN 24 mg/dL (7-26); BUN/CREATININE RATIO 31 (6-25); CALCIUM 9.3 mg/dL (8.4-10.2); CARBON DIOXIDE 25 mmol/L (22-29); CHLORIDE 104 mmol/L (98-107); CREATINE KINASE 75 IU/L (29-168); CREATININE, SERUM 0.78 mg/dL (0.57-1.11); EST GLOMERULAR FILTRATION RATE > 60 ML/MIN (60-); GLUCOSE 109 mg/dL (74-118); POTASSIUM 3.9 mmol/L (3.5-5.1); SODIUM 139 mmol/L (136-145)
[2020-03-28] MEDS ORDERED: KETOROLAC TROMETHAMINE 30 MG/ML VIAL IV STA (02:26)
[2020-03-28 02:31] LABS: BASOPHILS # (AUTO) 0.1 (0.0-0.1); BASOPHILS % 0.9 % (0.0-1.0); EOSINOPHILS # (AUTO) 0.2 (0.0-0.4); EOSINOPHILS % 2.7 % (0.0-6.0); HEMATOCRIT 41.7 % (34.2-44.1); HEMOGLOBIN 13.4 g/dL (12.0-16.0); LYMPHOCYTES # (AUTO) 1.9 (1.0-3.2); MEAN CORPUSCULAR HGB CONC 32.1 g/dL (31-35); MEAN CORPUSCULAR VOLUME 87.1 fL (81-99); MONOCYTES # (AUTO) 0.9 (0.2-0.8); MONOCYTES % 12.3 % (4.4-11.3); NEUTROPHILS # (AUTO) 4.4 (2.1-6.9); NEUTROPHILS % 58.7 % (38.7-80.0); PLATELET COUNT 280 x10e3/uL (140-360); RED BLOOD COUNT 4.79 x10e6/uL (3.6-5.1); RED CELL DISTRIBUTION WIDTH 13.2 % (11.7-14.4)
[2020-03-28 02:54] LABS: AMYLASE 101 U/L (25-125); LIPASE 55 U/L (8-78)
[2020-03-28 03:19] LABS: BILIRUBIN,URINE NEGATIVE (NEGATIVE); CLARITY,URINE CLEAR (CLEAR); COLOR,URINE YELLOW (YELLOW); KETONES,URINE NEGATIVE (NEGATIVE); LEUKOCYTE ESTERASE ,URINE NEGATIVE (NEGATIVE); NITRITE,URINE NEGATIVE (NEGATIVE); PROTEIN,URINE DIPSTICK NEGATIVE (NEGATIVE); URINE UROBILINOGEN 0.2 mg/dL (0.2 - 1)
[2020-03-28 03:20] LABS: BACTERIA,URINE MODERATE /HPF; EPITHELIAL CELLS,URINE MODERATE /LPF
== END 2020-03-28 03:30 | disposition home or self-care (01) ==
LOC: ER 01:15
DX: R10.13 Epigastric pain (principal); K29.70 Gastritis, unspecified, without bleeding; K21.9 Gastro-esophageal reflux disease without esophagitis; N39.0 Urinary tract infection, site not specified; I10 Essential (primary) hypertension; E78.5 Hyperlipidemia, unspecified
CPT/HCPCS: 36415; 80053; 81001; 82150; 82550; 82553; 83690; 84484; 85025; 93005; 99283; C9113; J1885; J2405

== ENCOUNTER 2020-05-18 18:30 | Emergency (ER) | payer OTHER ==
[~2020-05-18] VITALS: Ht 149.9 cm; Wt 63.5 kg
[2020-05-18 19:52] LABS: BASOPHILS # (AUTO) 0.1 (0.0-0.1); BASOPHILS % 0.7 % (0.0-1.0); EOSINOPHILS # (AUTO) 0.1 (0.0-0.4); HEMOGLOBIN 13.7 g/dL (12.0-16.0); LYMPHOCYTES # (AUTO) 1.7 (1.0-3.2); LYMPHOCYTES % 25.5 % (18.0-39.1); MEAN CORPUSCULAR HEMOGLOBIN 28.2 pg (28-32); MEAN CORPUSCULAR HGB CONC 32.6 g/dL (31-35); MEAN CORPUSCULAR VOLUME 86.6 fL (81-99); MONOCYTES # (AUTO) 0.6 (0.2-0.8); MONOCYTES % 8.6 % (4.4-11.3); NEUTROPHILS # (AUTO) 4.3 (2.1-6.9); NEUTROPHILS % 63.9 % (38.7-80.0); PLATELET COUNT 222 x10e3/uL (140-360); RED BLOOD COUNT 4.85 x10e6/uL (3.6-5.1); RED CELL DISTRIBUTION WIDTH 13.2 % (11.7-14.4)
[2020-05-18 21:53] LABS: ALANINE AMINOTRANSFERASE 37 IU/L (0-55); ALBUMIN 4.6 g/dL (3.5-5.0); ALBUMIN/GLOBULIN RATIO 1.3 (0.8-2.0); ALKALINE PHOSPHATASE 103 IU/L (40-150); ANION GAP 13.7 mmol/L (8-16); BLOOD UREA NITROGEN 17 mg/dL (7-26); BUN/CREATININE RATIO 24 (6-25); CALCIUM 9.7 mg/dL (8.4-10.2); CARBON DIOXIDE 26 mmol/L (22-29); CHLORIDE 105 mmol/L (98-107); CREATINE KINASE 149 IU/L (29-168); EST GLOMERULAR FILTRATION RATE > 60 ML/MIN (60-); GLUCOSE 114 mg/dL (74-118); POTASSIUM 3.7 mmol/L (3.5-5.1); SODIUM 141 mmol/L (136-145)
[2020-05-18] MEDS ORDERED: PANTOPRAZOLE SO40 MG PO (22:54)
== END 2020-05-18 23:05 | disposition home or self-care (01) ==
LOC: ER 18:51
DX: R07.89 Other chest pain (principal); R10.13 Epigastric pain; I10 Essential (primary) hypertension; E78.5 Hyperlipidemia, unspecified
CPT/HCPCS: 36415; 71045; 80053; 82550; 82553; 84484; 85025; 93005; 99283